=== PATIENT | male | born 1975 | race Caucasian/White ===

== ENCOUNTER 2020-01-01 07:56 | Day surgery (SDC) | payer OTHER, SELFPAY ==
[2019-12-26 10:05] VITALS: BMI 36.0
[2020-01-01] MEDS: Lactated Ringers 1,000 ML 50 ML IVCONT (08:15)
[2020-01-01 08:29] VITALS: BP 116/77; PULSE 62; RESP 16; TEMP 36.4; O2SAT 95
--- NOTE | 2020-01-01 08:39 | P.CONAN_ITS ---
[facility] Past Medical History Medical History Arrhythmia Back pain Cirrhosis Depression Esophageal varices in cirrhosis GERD (gastroesophageal reflux disease) Testicular torsion Surgical History Surgical History H/O wisdom tooth extraction History of esophagogastroduodenoscopy (EGD) Social History Social History Smoking Status: Unknown if ever smoked Use of substances other than those prescribed or required for medical reasons: Yes Substance Use Frequency: Daily Advance Directives Information Provided: No Recently lost weight without trying: No Meds Allergies Allergy/AdvReac Type Severity Reaction Status Date / Time amitriptyline [AMITRIPTYLINE] Allergy Severe SYNCOPE Verified 12/26/19 10:13 ondansetron [From ZOFRAN] AdvReac Intermediate PROLONGED Verified 01/01/20 08:00 QT Home Medications Medication Instructions Recorded Confirmed Type buspirone 5 mg PO BID 12/26/19 12/26/19 History fluoxetine 20 mg PO DAILY 12/26/19 12/26/19 History folic acid 1 mg PO DAILY 12/26/19 12/26/19 History furosemide 80 mg PO DAILY 12/26/19 12/26/19 History hyoscyamine sulfate 0.125 mg PO QID 12/26/19 12/26/19 History lansoprazole 30 mg PO DAILY 12/26/19 12/26/19 History lorazepam 1 mg PO DAILY PRN 12/26/19 12/26/19 History magnesium oxide 400 mg PO DAILY 12/26/19 12/26/19 History multivitamin 1 tab PO DAILY 12/26/19 12/26/19 History nadolol 20 mg PO DAILY 12/26/19 12/26/19 History pregabalin [Lyrica] 50 mg PO BID 12/26/19 12/26/19 History prochlorperazine maleate 5 mg PO TID PRN 12/26/19 12/26/19 History spironolactone 50 mg PO DAILY 12/26/19 12/26/19 History sucralfate [Carafate] 10 ml PO QID 12/26/19 12/26/19 History thiamine HCl (vitamin B1) 50 mg PO DAILY 12/26/19 12/26/19 History trimethobenzamide 300 mg PO Q6H PRN 12/26/19 12/26/19 History Exam Exam Date and Time: January 01, 202039 Height,Weight and Vital Signs: Height 5 ft 7 in Weight 104.326 kg Last Vital Signs Temp 97.5 F 01/01/20 08:29 Pulse 62 01/01/20 08:29 Resp 16 01/01/20 08:29 BP 116/77 01/01/20 08:29 Pulse Ox 95 01/01/20 08:29 Airway Mallampati Class: I TM Dist: >3cm Neck ROM: Full Partial: Upper Heart: rrr Lungs: nl Other: ao Assessment and Plan Assessment Anesthesia Assessment: Anesthesia Plan Discussed and Chart Reviewed Final Anesthetic Review NPO: Yes ASA Class: III Final Preanesthetic Review: No Changes in Pt Med Stat, Meds/Allgs Chart Reviewed, Consent Obtained/Reviewed and Anes Risks/Benef Reviewed Patient Risk: Intermediate Procedure Risk: Low Anesthetic Plan Anesthetic Plan: MAC: Disposition: Standard PACU
--- NOTE | 2020-01-01 08:43 | MHC.SHP ---
Pre-Procedural Eval Section B Chief Complaint: varices Details of Present Illness: hx of cirrhosis Relevant Family History (Specify if Yes): No Relevant Social History: Alcohol Use Present Medications: see Short Stay Collaborative assessment Medical History: Significant History (cirrhossi, ) History of Previous Operations: No relevant previous surgery Allergies: Allergies Allergy/AdvReac Type Severity Reaction Status Date / Time amitriptyline [AMITRIPTYLINE] Allergy Severe SYNCOPE Verified 12/26/19 10:13 ondansetron [From ZOFRAN] AdvReac Intermediate PROLONGED Verified 01/01/20 08:00 QT Review of Systems Sugical H&P ROS: Negative: Constitution, Cardiovascular, Respiratory, Neurological, Psychiatric, Hem-Onc, Allergic/Immunologic, Gastrointestinal, Genitourinary, Musculoskeletal, Integumentary, Endocrine and Eyes/Ears/Nose/Throat Exam Surgical H&P Exam: Normal: HEENT, Normal: Heart, Normal: Lungs, Normal: Extremities, Normal: Skin and Normal: Neurological and Significant Findings: Abdomen (obese) Plan Diagnosis/Plan: Unchanged Patient has been examined and remains a candidate for the planned procedure
--- NOTE | 2020-01-01 08:44 | PM.OP ---
Brief Operative Note Date of procedure: 01/01/20 Pre-op diagnosis: varices Post-op diagnosis: same Procedure: Operative Information Procedure Description: EGD FLEXIBLE TRANSORAL UPPER GASTROINTESTINAL ENDOSCOPY UPPER ENDOSCOPY Consent: Indications for the procedure and potential complications of bleeding, perforation, reaction to medications and missed diagnosis were discussed with the patient and informed consent was obtained. Instrument: Olympus GIF H 190 J mid size upper endoscope Monitoring: Vital signs and clinical assessment, continuous EKG monitoring, Pulse oximetry, Carbon Dioxide monitoring and blood pressure monitoring were done throughout the procedure. Procedure: The patient was placed in the left lateral decubitis position and pre-procedure medications were administered and a bite block was placed. The endoscope was inserted into the mouth and advanced under direct vision to the third part of duodenum. A careful inspection was made as the upper endoscope was withdrawn including a retroflexed examination of the proximal stomach; Findings and interventions are described below. 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 Mosaic pattern consistent with portal hypertensive gastropathy. Grade 2 flap valve on retroflexed examination of the cardia. No gastric varices. Duodenum: Normal bulb and descending duodenum, Intervention: none Plan: Repeat EGD in 1-2 yrs or earlier if clinically indicated cont with current medications Above findings were reviewed with the patient and relevant handouts were provided if indicated. Surgeon: Satnam Vallecillo MD Anesthesia: MAC Condition: stable Disposition: PACU
[2020-01-01 09:15] VITALS: PULSE 60; RESP 16; TEMP 36.6; O2SAT 99
[2020-01-01 09:30] VITALS: BP 114/72; PULSE 62; RESP 16; O2SAT 95
[2020-01-01 09:45] VITALS: BP 118/75; PULSE 65; RESP 16; TEMP 36.6; O2SAT 96
--- NOTE | 2020-01-01 10:11 | HO.POSTANES ---
Post Anesthesia Evaluation Post Anesthesia Evaluation Vital Signs: Vital Signs Temp Pulse Resp BP Pulse Ox 01/01/20 09:45 97.8 F 65 16 118/75 96 01/01/20 09:30 62 16 114/72 95 01/01/20 09:15 97.8 F 60 16 99 01/01/20 08:29 97.5 F 62 16 116/77 95 Anesthesia: Monitored Mental Status: Awake Pain Control: Satisfactory Nausea/Vomiting: None Hydration: Adequate Anesthesia-Related Issues: No Anes. Related Issues
== END 2020-01-01 10:30 | disposition home or self-care (01) ==
PROVIDERS: Internal Medicine Gastroenterology; PCP Hospitalist; Visit Provider Internal Medicine
PROC: 0DJ08ZZ Inspection of Upper Intestinal Tract, Via Natural or Artificial Opening Endoscopic (ICD-10-PCS; CPT 43235; principal; 2020-01-01 08:40)
DX: K74.60 Unspecified cirrhosis of liver (principal); I85.10 Secondary esophageal varices without bleeding; Z72.89 Other problems related to lifestyle; K44.9 Diaphragmatic hernia without obstruction or gangrene; K31.811 Angiodysplasia of stomach and duodenum with bleeding; K21.9 Gastro-esophageal reflux disease without esophagitis; F33.9 Major depressive disorder, recurrent, unspecified; Z79.899 Other long term (current) drug therapy; Z88.8 Allergy status to other drugs, medicaments and biological substances
CPT/HCPCS: 43235

== ENCOUNTER → 2020-01-23 09:57 | Outpatient (BNVA) | payer OTHER, SELFPAY | PROVIDERS: PCP Hospitalist; Visit Provider Internal Medicine Gastroenterology | DX: Z76.89 Persons encountering health services in other specified circumstances (principal) ==

== ENCOUNTER → 2020-05-18 10:24 | Outpatient (BNVA) | payer OTHER, SELFPAY | PROVIDERS: PCP Hospitalist; Visit Provider Internal Medicine Gastroenterology ==

== ENCOUNTER 2020-07-22 09:38 | Outpatient (REF) | payer OTHER, SELFPAY ==
--- NOTE | ~2020-07-22 | US_ITS ---
EXAMINATION: US ABDOMEN LIMITED CLINICAL INFORMATION: Alcoholic cirrhosis of liver without ascites. COMPARISON: Ultrasound abdomen with elastography 05/28/2019. CT abdomen and pelvis 09/06/2018. Ultrasound abdomen 07/28/2018. TECHNIQUE: Real-time imaging of the right upper quadrant abdominal viscera. FINDINGS: PANCREAS: Normal. LIVER: There is a liver appears cirrhotic with irregular contour and heterogeneous echotexture. No focal hepatic lesion. There is no intrahepatic biliary duct dilatation seen. The main portal vein is patent with appropriate hepatopedal flow. GALLBLADDER: Normal. The gallbladder is physiologically distended without evidence of stones, sludge, polyps, wall thickening or pericholecystic fluid. COMMON BILE DUCT: Normal in caliber measuring 0.6 cm in diameter. RIGHT KIDNEY: Normal. No hydronephrosis. No renal calculi or focal parenchymal lesions. The kidney measures 12.0 cm in maximum dimension. FREE FLUID: None. US/US abdomen limited IMPRESSION: Cirrhotic-appearing liver. No focal liver lesion seen.
[2020-07-22 10:51] LABS: Imm Gran Abs Auto 0.02 X10*3/uL (0.00-0.03); Imm Gran Pct Auto 0.3 % (0.0-0.4); Neutrophils Percent Auto 71.7 % (45-73); PLT CLUMP 1; SCAN SMEAR FLAG 1
[2020-07-22 10:53] LABS: Basophils Percent Auto 0.1 % (0-2); Eosinophils Absolute Auto 0.2 X10*3/uL (0.0-0.4); Eosinophils Percent Auto 2.6 % (0-4); Hematocrit 45.2 % (42-52); Lymphocytes Percent Auto 14.4 % (20-40); Mean Corpuscular HGB Conc 35.4 g/dl (31.0-36.0); Mean Corpuscular Hemoglobin 31.2 pg (27.0-33.0); Mean Corpuscular Volume 88.1 fL (80-98); Mean Platelet Volume 11.3 fL (9.4-12.4); Monocytes Absolute Auto 0.7 X10*3/uL (0.1-1.2); Monocytes Percent Auto 10.9 % (2-11); Neutrophils Absolute Auto 4.9 X10*3/uL (2.0-8.3); Red Blood Count 5.13 X10*6/uL (4.60-5.80); Red Cell Distribution Width 13.5 % (11.0-16.0); White Blood Count 6.8 X10*3/uL (4.8-10.8)
[2020-07-22 10:55] LABS: INTERNATIONAL NORM RATIO 1.2 (0.9-1.1); Prothrombin Time 13.9 SEC (10.8-13.0)
[2020-07-22 10:57] LABS: Platelet Count 88 X10*3/uL (160-400)
[2020-07-22 11:17] LABS: Alanine Aminotransferase 16 U/L (0-40); Albumin Level 4.4 g/dL (3.5-5.0); Alkaline Phosphatase 107 U/L (39-117); Anion Gap 13 (12-20); Aspartate Amino Transferase 25 U/L (5-37); Blood Urea Nitrogen 13 mg/dL (9-16); Calcium 9.2 mg/dL (8.4-10.2); Carbon Dioxide 28 mmol/L (22-29); Chloride 101 mmol/L (96-108); Estimated Glomerular Filt Rate > 60; Glucose Random 112 mg/dL (60-115); Potassium 3.6 mmol/L (3.3-5.1); Sodium 138 mmol/L (135-145); Total Protein 7.5 g/dL (6.5-8.0)
[2020-07-22 12:15] LABS: Folate > 20.0 ng/mL (> or = 4.0); Vitamin B12 1437 pg/mL (200-900)
[2020-07-25 01:11] LABS: Zinc 98 mcg/dL (60-130)
[2020-07-27 06:27] LABS: Vitamin B6 46.7 ng/mL (2.1-21.7)
[2020-07-27 11:12] LABS: Vitamin C 1.7 mg/dL (0.2-2.1)
[2020-07-27 12:51] LABS: Vitamin A 40 mcg/dL (38-98)
[2020-07-27 15:17] LABS: Alpha-Tocopherol 14.6 mg/L (5.7-19.9)
[2020-07-28 14:42] LABS: Nicotinamide <20 ng/mL; Vit B3 - Nicotinic Acid <20 ng/mL
[2020-07-29 09:11] LABS: Vitamin B5 (Pantothenic Acid) 164 ng/mL (<275)
== END 2020-07-22 09:39 | disposition home or self-care (01) ==
LOC: HO.US 09:38
PROVIDERS: PCP Hospitalist; Visit Provider Internal Medicine Gastroenterology
DX: K70.30 Alcoholic cirrhosis of liver without ascites (principal)
CPT/HCPCS: 36415; 76705; 80053; 82180; 82306; 82607; 82746; 84207; 84446; 84590; 84591; 84630; 85025; 85610

== ENCOUNTER 2020-09-02 23:50 | Emergency (ER) | payer OTHER, SELFPAY ==
--- NOTE | ~2020-09-02 | CT_ITS ---
EXAMINATION: CT ABDOMEN AND PELVIS WITHOUT CONTRAST CLINICAL INFORMATION: Severe epigastric pain, history of gastritis COMPARISON: 09/06/2018 TECHNIQUE: Multidetector volumetric imaging was performed from the superior aspect of the liver through the pubic symphysis. Sagittal and coronal reformatted images were obtained on the technologist's workstation. This CT examination was performed using dose optimization techniques as appropriate, variously including the following: *Automated exposure control *Adjustment of mA and/or kV according to patient size (this includes techniques or standardized protocols for targeted exams where dose is matched to indication/reason for exam; i.e. extremities or head) *Use of iterative reconstruction technique DLP: 1205 mGy-cm FINDINGS: LUNG BASES: The visualized lung bases are unremarkable. LIVER, GALLBLADDER, AND BILIARY TREE: The liver again demonstrates a nodular contour and heterogeneous attenuation consistent with cirrhosis. No focal hepatic lesion or biliary ductal dilatation is identified on this noncontrast exam. The gallbladder is unremarkable with no evidence of radiopaque gallstones, gallbladder wall thickening, or obvious pericholecystic inflammatory changes. PANCREAS: Unremarkable. SPLEEN: Splenomegaly again noted. ADRENAL GLANDS: Left adrenal myelolipoma is redemonstrated. Right adrenal gland is unremarkable. KIDNEYS AND URETERS: The kidneys are normal in size, shape, and attenuation. No hydronephrosis, hydroureter, or calculi seen. No perinephric stranding. BLADDER: Unremarkable. GASTROINTESTINAL TRACT: Stomach appears unremarkable. There is scattered colonic diverticulosis without diverticulitis. No evidence of bowel obstruction. The appendix is unremarkable. No free fluid or free air is seen. ABDOMINAL WALL: No significant hernia is appreciated. LYMPH NODES: Normal. VASCULAR: Unremarkable. PELVIC VISCERA: Unremarkable. OSSEOUS STRUCTURES: There is degenerative disc disease at L4-L5 with surrounding degenerative endplate changes. CT/CT abdomen pelvis wo con IMPRESSION: 1. No acute findings identified in the abdomen/pelvis. 2. Redemonstrated cirrhosis and splenomegaly. 3. Colonic diverticulosis without diverticulitis.
--- NOTE | 2020-09-03 00:05 | PC.NURSE ---
PT TO ROOM VIA AMBULANCE WITH C/O NAUSEA, VOMITING, AND ABD PAIN. PT CHG INTO GOWN AND AWAITING FOR MD FOR EVAL.
[2020-09-03 00:18] VITALS: BP 144/66; PULSE 63; RESP 16; TEMP 36.6; O2SAT 99; BMI 39.0
--- NOTE | 2020-09-03 00:38 | ECG_ITS ---
Test Reason : ABDPAIN Blood Pressure : / mmHG Vent. Rate : 072 BPM Atrial Rate : 072 BPM P-R Int : 142 ms QRS Dur : 090 ms QT Int : 418 ms P-R-T Axes : 048 002 042 degrees QTc Int : 457 ms Sinus rhythm with Sinus Arrhythmia Otherwise normal ECG When compared with ECG of 11-OCT-2018 11:21, Sinus Arrhythmia is now Present Referred By: Magda Moore Electronically Signed By:LOURDES GRIFFITH MD
--- NOTE | 2020-09-03 00:40 | ED_ITS ---
HPI - Abdominal Pain General Chief Complaint: Abdominal Pain Stated Complaint: Abd Pain Time Seen by Provider: 09/02/20 23:57 Source: patient and EMS Mode of arrival: EMS Limitations: no limitations History of Present Illness HPI narrative: Patient comes emergency room complaining of severe epigastric pain. Patient states he is known to have gastritis. Patient states that he has not been drinking alcohol. Patient also complaining of nausea and vomiting, no diarrhea. No fever or chills. Patient denies taking any recent NSAIDs. Related Data Home Medications Medication Instructions Recorded Confirmed buspirone 5 mg PO BID 12/26/19 12/26/19 fluoxetine 20 mg PO DAILY 12/26/19 12/26/19 folic acid 1 mg PO DAILY 12/26/19 12/26/19 lorazepam 1 mg PO DAILY PRN 12/26/19 12/26/19 magnesium oxide 400 mg PO DAILY 12/26/19 12/26/19 multivitamin 1 tab PO DAILY 12/26/19 12/26/19 pregabalin [Lyrica] 50 mg PO BID 12/26/19 12/26/19 thiamine HCl (vitamin B1) 50 mg PO DAILY 12/26/19 12/26/19 trimethobenzamide 300 mg PO Q6H PRN 12/26/19 12/26/19 Previous Rx's Medication Instructions Recorded sucralfate 100 mg/mL oral 10 ml PO QID 30 Days #1200 ml 01/30/20 suspension zinc 50 mg tablet 50 mg PO DAILY 90 Days #90 tab 03/08/20 pantoprazole 40 mg tablet,delayed 40 mg PO BID #60 tab 03/17/20 release famotidine 40 mg tablet 40 mg PO BEDTIME #30 tab 05/27/20 furosemide 80 mg tablet 80 mg PO DAILY 30 Days #30 tab 07/08/20 hyoscyamine sulfate 0.125 mg tablet 0.125 mg PO QID 30 Days #120 tab 07/08/20 lansoprazole 30 mg capsule,delayed 30 mg PO BID 30 Days #60 cap 07/13/20 release lansoprazole 30 mg capsule,delayed 30 mg PO BID #180 cap 07/21/20 release prochlorperazine maleate 5 mg 5 mg PO TID PRN #90 tab 07/21/20 tablet nadolol 20 mg tablet 20 mg PO DAILY #30 tab 08/09/20 spironolactone 50 mg tablet 100 mg PO DAILY 90 Days #180 tab 08/09/20 Allergies Allergy/AdvReac Type Severity Reaction Status Date / Time amitriptyline [AMITRIPTYLINE] Allergy Severe SYNCOPE Verified 05/18/20 10:24 ondansetron [From ZOFRAN] AdvReac Intermediate PROLONGED Verified 05/18/20 10:24 QT Review of Systems Review of Systems Constitutional : No Weight loss, No Fever, No Chills, No Night Sweats, No Fatigue, No Malaise ENT/Mouth : No Hearing loss, No Ear Pain, No Nasal Congestion, No Sinus Pain, No Hoarseness, No sore throat, No Rhinorrhea, No Swallowing Difficulty Eyes: No Eye Pain, No Swelling, No Redness, No Foreign Body, No Discharge, No Vision Changes Cardiovascular : No Chest Pain, No SOB, No Dyspnea on Exertion, No Orthopnea, No Edema, No Palpitations Respiratory : No Cough, No Sputum, No Wheezing, No Smoke Exposure, No Dyspnea Gastrointestinal : Complaining of nausea and vomiting, No Diarrhea, No Constipation, complaining of severe abdominal pain in epigastric region, No Hematochezia, No Melena Genitourinary : no irregular bleeding, No Dysuria, No Urinary Frequency, No Hematuria, No Urinary Incontinence, No Urgency, No Flank Pain, No Urinary Flow Changes, No Hesitancy Musculoskeletal : No joint pain, No Myalgias, No Joint Swelling Skin : No Skin Lesions, No rash Neuro : No Weakness, No Numbness, No Paresthesias, No Loss of Consciousness, No Dizziness, No Headache Psych : No Anxiety/Panic, No Depression, No SI/HI/AH/VH, No Social Issues, Heme/Lymph: No Bruising, No Bleeding,No Lymphadenopathy Endocrine : No Polyuria, No Polydipsia, No Temperature Intolerance Physical Exam Vital Signs: Vital Signs: Last Vital Signs Temp 98 F 09/03/20 00:18 Pulse 63 09/03/20 00:18 Resp 16 09/03/20 00:18 BP 144/66 H 09/03/20 00:18 Pulse Ox 99 09/03/20 00:18 Body Mass Index 39.0 Appearance: Alert. Oriented X3. Actively vomiting, looks very uncomfortable Eyes: Pupils equal, round and reactive to light. ENT: Pharynx normal. Neck: Normal inspection. Neck supple. No lymph nodes noted. No crepitus CVS: Normal heart rate and rhythm. Pulses normal. Normal S1 and S2 Respiratory: No respiratory distress. Breath sounds normal. No Wheezing. No rales Abdomen: Soft , tender to palpation in bilateral upper quadrants, especially over the epigastric area. No rebound, no guarding. No rigidity. No distention. Skin: Skin warm and dry. Normal skin color. Normal skin turgor. Extremities: No lower extremity edema. No lower extremity edema. No Lacerations. No Rash Neuro: Oriented X 3. No motor deficit. No sensory deficit. Moving all extermities. No slurred speech. Course Course Course Narrative: Patient has received multiple medications for vomiting. Patient has been seen multiple times taking his fingers in his mouth to make himself throw up. Patient requesting a GI cocktail. I discussed with the patient we will go ahead and give it to him, however in order to be effective, he needs to not make himself throw up At this time, all of the patient's labs are pending, an elevated white blood cell count is expected secondary to reactive leukocytosis. Sign-out given to Dr. Erazo [facility] - Abdominal Pain Lab Data Result diagrams: 09/03/20 01:22 09/03/20 01:22 Labs: Lab Results 09/03/20 09/03/20 09/03/20 Range/Units 01:22 01:22 Unknown WBC 12.4 H (4.8-10.8) X10*3/uL RBC 5.42 (4.60-5.80) X10*6/uL Hgb 17.2 (14.0-18.0) g/dl Hct 47.4 (42-52) % MCV 87.5 (80-98) fL MCH 31.7 (27.0-33.0) pg MCHC 36.3 H (31.0-36.0) g/dl RDW 13.1 (11.0-16.0) % Plt Count 77 L (160-400) X10*3/uL MPV 12.5 H (9.4-12.4) fL Immature Gran % (Auto) 0.3 (0.0-0.4) % Neut % (Auto) 88.9 H (45-73) % Lymph % (Auto) 7.3 L (20-40) % Pender % (Auto) 3.0 (2-11) % Eos % (Auto) 0.3 (0-4) % Baso % (Auto) 0.2 (0-2) % Lymph # (Auto) 0.9 L (1.2-4.9) X10*3/uL Pender # (Auto) 0.4 (0.1-1.2) X10*3/uL Eos # (Auto) 0.0 (0.0-0.4) X10*3/uL Baso # (Auto) 0.0 (0.0-0.2) X10*3/uL Abs Immat Gran (auto) 0.04 H (0.00-0.03) X10*3/uL Absolute Neuts (auto) 11.0 H (2.0-8.3) X10*3/uL Absolute Nucleated RBC 0.000 (0.0-0.012) X10*3/uL Nucleated RBC % (auto) 0.0 (0.0-0.2) /100WBC Smear Tech's Comments VERIFIED GGT Cancelled Ethyl Alcohol < 10 mg/dL Imaging Data CT scan - abdomen: Radiologist's impression: FINDINGS: LUNG BASES: The visualized lung bases are unremarkable. LIVER, GALLBLADDER, AND BILIARY TREE: The liver again demonstrates a nodular contour and heterogeneous attenuation consistent with cirrhosis. No focal hepatic lesion or biliary ductal dilatation is identified on this noncontrast exam. The gallbladder is unremarkable with no evidence of radiopaque gallstones, gallbladder wall thickening, or obvious pericholecystic inflammatory changes. PANCREAS: Unremarkable. SPLEEN: Splenomegaly again noted. ADRENAL GLANDS: Left adrenal myelolipoma is redemonstrated. Right adrenal gland is unremarkable. KIDNEYS AND URETERS: The kidneys are normal in size, shape, and attenuation. No hydronephrosis, hydroureter, or calculi seen. No perinephric stranding. BLADDER: Unremarkable. GASTROINTESTINAL TRACT: Stomach appears unremarkable. There is scattered colonic diverticulosis without diverticulitis. No evidence of bowel obstruction. The appendix is unremarkable. No free fluid or free air is seen. ABDOMINAL WALL: No significant hernia is appreciated. LYMPH NODES: Normal. VASCULAR: Unremarkable. PELVIC VISCERA: Unremarkable. OSSEOUS STRUCTURES: There is degenerative disc disease at L4-L5 with surrounding degenerative endplate changes. CT/CT abdomen pelvis wo con IMPRESSION: 1. No acute findings identified in the abdomen/pelvis. 2. Redemonstrated cirrhosis and splenomegaly. 3. Colonic diverticulosis without diverticulitis. ECG Data Attestation: I personally reviewed and interpreted this ECG as follows: (Sinus rhythm, heart rate 72, no ST segment depression or elevation, no T-wave inversion, QTC 457) Discharge Plan Discharge Prescriptions: No Action sucralfate [Carafate] 100 mg/mL suspension 10 ml PO QID 30 Days Qty: 1200 RF: 3 zinc 50 mg tablet 50 mg PO DAILY 90 Days Qty: 90 RF: 1 pantoprazole 40 mg tablet,delayed release (DR/EC) 40 mg PO BID Qty: 60 RF: 2 famotidine 40 mg tablet 40 mg PO BEDTIME Qty: 30 RF: 4 hyoscyamine sulfate 0.125 mg tablet 0.125 mg PO QID 30 Days Qty: 120 RF: 1 furosemide 80 mg tablet 80 mg PO DAILY 30 Days Qty: 30 RF: 6 lansoprazole 30 mg capsule,delayed release(DR/EC) 30 mg PO BID 30 Days Qty: 60 RF: 3 prochlorperazine maleate 5 mg tablet 5 mg PO TID PRN (Reason: for nausea) Qty: 90 RF: 2 lansoprazole 30 mg capsule,delayed release(DR/EC) 30 mg PO BID Qty: 180 RF: 1 nadolol 20 mg tablet 20 mg PO DAILY Qty: 30 RF: 3 spironolactone 50 mg tablet 100 mg PO DAILY 90 Days Qty: 180 RF: 1 multivitamin Tablet 1 tab PO DAILY RF: 0 buspirone 5 mg Tablet 5 mg PO BID RF: 0 folic acid 1 mg Tablet 1 mg PO DAILY RF: 0 lorazepam 1 mg Tablet 1 mg PO DAILY PRN (Reason: Anxiety) RF: 0 fluoxetine 20 mg Capsule 20 mg PO DAILY RF: 0 thiamine HCl (vitamin B1) 50 mg Tablet 50 mg PO DAILY RF: 0 trimethobenzamide 300 mg Capsule 300 mg PO Q6H PRN (Reason: Nausea) RF: 0 pregabalin [Lyrica] 50 mg Capsule 50 mg PO BID RF: 0 magnesium oxide 400 mg magnesium Tablet 400 mg PO DAILY RF: 0 PMFSH Past Medical History Medical History Arrhythmia Back pain Cirrhosis Depression Esophageal varices in cirrhosis GERD (gastroesophageal reflux disease) Testicular torsion Surgical History H/O wisdom tooth extraction History of esophagogastroduodenoscopy (EGD) Family History Family History (Updated 05/18/20 @ 10:26 by JEFERSON Dillon) Father History of COPD Mother History of diabetes mellitus Social History Social History (Updated 05/18/20 @ 10:26 by JEFERSON Dillon) Household Members: Significant Other, Family and Children Alcohol intake: current Alcohol intake frequency: does not drink Advance Directives: No Advance Directives Information Provided: No
--- NOTE | 2020-09-03 00:57 | PC.NURSE ---
MD AT BEDSIDE FOR EVAL. IV PLACED TO LEFT LOWER ARM. PT TO CT IN STRETCHER AND MEDICATED FOR PAIN AND NAUSEA.
[2020-09-03] MEDS: Famotidine/PF 20 MG/2 ML VIAL IVPUSH (00:58)
[2020-09-03] MEDS: 0.9 % Sodium Chloride 1,000 ML 999 ML IVCONT (00:59)
[2020-09-03] MEDS: Metoclopramide HCl 10 MG/2 ML VIAL IVPUSH (00:59)
[2020-09-03] MEDS: Morphine Sulfate 4 MG/ML CARTRIDGE IVPUSH (00:59)
[2020-09-03 02:00] LABS: Basophils Percent Auto 0.2 % (0-2); Eosinophils Percent Auto 0.3 % (0-4); Imm Gran Abs Auto 0.04 X10*3/uL (0.00-0.03); Imm Gran Pct Auto 0.3 % (0.0-0.4); MANUAL DIFF FLAG SCAN; Mean Corpuscular HGB Conc 36.3 g/dl (31.0-36.0); Mean Corpuscular Volume 87.5 fL (80-98); PLT CLUMP 1; SCAN SMEAR FLAG 1
[2020-09-03 02:02] LABS: Hematocrit 47.4 % (42-52); Hemoglobin 17.2 g/dl (14.0-18.0); Lymphocytes Absolute Auto 0.9 X10*3/uL (1.2-4.9); Lymphocytes Percent Auto 7.3 % (20-40); Mean Corpuscular Hemoglobin 31.7 pg (27.0-33.0); Mean Platelet Volume 12.5 fL (9.4-12.4); Monocytes Absolute Auto 0.4 X10*3/uL (0.1-1.2); Neutrophils Percent Auto 88.9 % (45-73); Red Blood Count 5.42 X10*6/uL (4.60-5.80); Red Cell Distribution Width 13.1 % (11.0-16.0); White Blood Count 12.4 X10*3/uL (4.8-10.8)
[2020-09-03 02:03] LABS: Platelet Count 77 X10*3/uL (160-400)
[2020-09-03 02:19] LABS: SLIDE REVIEW VERIFIED
[2020-09-03] MEDS: Magnesium Hydrox/Alum Hydrox 30 ML ORAL.SUSP PO (02:27)
[2020-09-03] MEDS: Lidocaine HCl Viscous 2 % 15 ML SOLUTION MUCOUS MEM (02:27)
[2020-09-03 02:55] LABS: Ethanol < 10 mg/dL
[2020-09-03 04:00] VITALS: RESP 16; O2SAT 97
--- NOTE | 2020-09-03 04:38 | PC.NURSE ---
PT UP TO NURSING DESK AND REQUESTING PAIN MEDS. PT RETURNS TO ROOM AND WAS OBSERVED STICKING FINGERS DOWN THROAT TO MAKE SELF VOMIT. PT OBSERVED DOING THIS SEVERAL TIMES. DR. GALO AWARE. PT AWAITING FOR LABS. WILL CONTINUE TO MONITOR PT.
[2020-09-03 06:44] LABS: Anion Gap 19 (12-20); Blood Urea Nitrogen 15 mg/dL (9-16); Calcium 9.3 mg/dL (8.4-10.2); Carbon Dioxide 18 mmol/L (22-29); Chloride 105 mmol/L (96-108); Creatinine Clr Calc Pharmacy 139.8; Estimated Glomerular Filt Rate > 60; Glucose Random 130 mg/dL (60-115); Potassium 3.8 mmol/L (3.3-5.1); Sodium 138 mmol/L (135-145)
[2020-09-03 06:49] LABS: Alanine Aminotransferase 15 U/L (0-40); Albumin Level 4.6 g/dL (3.5-5.0); Alkaline Phosphatase 113 U/L (39-117); Aspartate Amino Transferase 32 U/L (5-37); Bilirubin Direct 0.4 mg/dL (0.0-0.5); Bilirubin Total 1.2 mg/dL (0.0-1.0); Lipase 24 U/L (8-78); Total Protein 7.9 g/dL (6.5-8.0)
[2020-09-03] MEDS: diphenhydrAMINE HCL 50 MG/ML VIAL IVPUSH (07:08)
== END 2020-09-03 07:16 | disposition home or self-care (01) ==
PROVIDERS: Emergency Provider Emergency Medicine
DX: R10.13 Epigastric pain (principal); R11.2 Nausea with vomiting, unspecified; Z87.19 Personal history of other diseases of the digestive system
CPT/HCPCS: 36415; 74176; 80048; 80076; 82077; 83690; 85025; 93005; 96361; 96374; 96375; 99284; J1200; J1790; J2270; J2765

== ENCOUNTER → 2020-09-14 13:24 | Outpatient (BNVA) | payer OTHER, SELFPAY | PROVIDERS: PCP Hospitalist; Visit Provider Internal Medicine Gastroenterology ==

== ENCOUNTER → 2021-02-15 12:39 | Outpatient (BNVA) | payer OTHER, SELFPAY | PROVIDERS: PCP Hospitalist; Visit Provider Internal Medicine Gastroenterology ==

== ENCOUNTER 2021-06-15 10:34 | Outpatient (REF) | payer OTHER, SELFPAY ==
--- NOTE | ~2021-06-15 | US_ITS ---
EXAMINATION: US ABDOMEN LIMITED WITH LIVER ELASTOGRAPHY CLINICAL INFORMATION: Alcoholic cirrhosis without ascites COMPARISON: Previous abdominal ultrasound most recent June [address] of the abdomen and pelvis August 2020 TECHNIQUE: Real-time imaging of the abdominal viscera. Noninvasive ultrasound liver fibrosis assessment is performed using [employer] ElastPQ point quantification shear wave elastography (2D-SWE) with a C5-2 MHz transducer. Multiple elastography samples are obtained. FINDINGS: PANCREAS: Not well visualized. LIVER: Liver echotexture is very heterogeneous suggestive of hepatocellular disease. The contour of the liver is lobulated suggestive of cirrhosis. No focal liver lesion. No biliary duct dilatation. The right lobe measures 13 cm in length. The left lobe measures 14 cm in length. Portal flow is normal/hepatopedal Shear wave liver elastography median stiffness is 1.4 m/s (reference: normal median stiffness is 1.3 m/s or less). IQR/median stiffness to assess sampling precision is 0.11 (reference: good quality data set is IQR/median stiffness of 0.15 or less). GALLBLADDER: Normal. The gallbladder is physiologically distended without evidence of stones, sludge, polyps, wall thickening or pericholecystic fluid. COMMON BILE DUCT: Normal in caliber measuring 0.7 cm in diameter. RIGHT KIDNEY: Normal. No hydronephrosis. No renal calculi or focal parenchymal lesions. The kidney measures 13.5 cm in maximum dimension. FREE FLUID: None. US/US abdomen cai w elastography IMPRESSION: 1. Impression: Cirrhotic-appearing liver. No focal liver lesion seen. Limited visualization of the pancreas. 2. Liver elastography: Adequate liver sampling. Decreased liver stiffness compared to May 2019. REFERENCE: Society of Radiologists in Ultrasound Liver Stiffness Thresholds (2020): LIVER STIFFNESS THRESHOLDS: *Liver Stiffness equal or less than 1.3 m/s: High probability of being normal. *Liver Stiffness less than 1.7 m/s: In the absence of other known clinical signs, rules out compensated advanced chronic liver disease. *Liver Stiffness 1.7-2.1 m/s: Suggestive of compensated advanced chronic liver disease but need further test for confirmation. *Liver Stiffness over 2.1 m/s: Rules in compensated advanced chronic liver disease. *Liver Stiffness over 2.4 m/s: Suggestive of clinically significant portal hypertension. QUALITY OF DATA SET: *IQR/Median value equal or less than 0.15 implies a quality data set. *IQR/Median value over 0.15 implies a poor quality data set. SIGNIFICANT CHANGE FROM PRIOR EXAM: Significant change if liver stiffness measurement is 10% or greater from prior exam. OTHER CONSIDERATIONS: The stage of liver fibrosis may be overestimated in the setting of acute hepatitis, liver inflammation, elevated liver function tests, hepatic vascular congestion, obstructive cholestasis, non-fasting state, and infiltrative diseases such as amyloidosis and lymphoma. In some patients with NAFLD, the liver stiffness thresholds for compensated advanced chronic liver disease may be lower. In causes other than viral hepatitis and NAFLD, liver stiffness thresholds are not well established.
[2021-06-15 12:04] LABS: Basophils Percent Auto 0.5 % (0-2); Eosinophils Absolute Auto 0.1 X10*3/uL (0.0-0.4); Eosinophils Percent Auto 2.2 % (0-4); Hematocrit 46.4 % (42.0-52.0); Hemoglobin 16.1 g/dl (14.0-18.0); Imm Gran Abs Auto 0.03 X10*3/uL (0.00-0.03); Imm Gran Pct Auto 0.5 % (0.0-0.4); Lymphocytes Percent Auto 18.5 % (20-40); MANUAL DIFF FLAG SCAN; Mean Corpuscular HGB Conc 34.7 g/dl (31.0-36.0); Mean Corpuscular Hemoglobin 31.5 pg (27.0-33.0); Mean Corpuscular Volume 90.8 fL (80.0-98.0); Monocytes Absolute Auto 0.6 X10*3/uL (0.1-1.2); Monocytes Percent Auto 10.6 % (2-11); Neutrophils Absolute Auto 3.7 x10*3/uL (2.0-8.3); Neutrophils Percent Auto 67.7 % (45-73); PLT CLUMP 1; Red Blood Count 5.11 X10*6/uL (4.60-5.80); Red Cell Distribution Width 13.3 % (11.0-16.0); SCAN SMEAR FLAG 1
[2021-06-15 12:08] LABS: INTERNATIONAL NORM RATIO 1.1 (0.9-1.1); Prothrombin Time 12.6 SEC (9.9-13.0)
[2021-06-15 12:22] LABS: Platelet Count 81 X10*3/uL (160-400); White Blood Count 5.5 X10*3/uL (4.8-10.8)
[2021-06-15 12:23] LABS: SLIDE REVIEW VERIFIED
[2021-06-15 12:43] LABS: Erythrocyte Sedimentation Rate 5 MM/HR (0-15)
[2021-06-15 12:54] LABS: Alanine Aminotransferase 27 U/L (0-40); Albumin Level 4.4 g/dL (3.5-5.0); Alkaline Phosphatase 93 U/L (39-117); Anion Gap 14 (12-20); Aspartate Amino Transferase 32 U/L (5-37); Bilirubin Total 0.8 mg/dL (0.0-1.0); Blood Urea Nitrogen 11 mg/dL (9-16); Calcium 9.4 mg/dL (8.4-10.2); Carbon Dioxide 26 mmol/L (22-29); Chloride 104 mmol/L (96-108); Estimated Glomerular Filt Rate > 60; Glucose Random 102 mg/dL (60-115); Iron 100 mcg/dL (45-160); Percent Iron Saturation 28 % (15-50); Potassium 4.3 mmol/L (3.3-5.1); Sodium 140 mmol/L (135-145); Total Iron Binding Capacity 354 mcg/dL (228-428); Total Protein 7.6 g/dL (6.5-8.0); Unsaturated Iron Binding 254 ug/dL
[2021-06-15 13:24] LABS: Ferritin 75 ng/mL (20-250)
[2021-06-15 13:25] LABS: Folate > 20.0 ng/mL (> or = 4.0); Vitamin B12 1140 pg/mL (200-900)
[2021-06-18 11:41] LABS: Vitamin C 1.3 mg/dL (0.2-2.1)
[2021-06-18 16:47] LABS: Zinc 82 mcg/dL (60-130)
[2021-06-22 09:56] LABS: Vitamin A 40 mcg/dL (38-98)
== END 2021-06-15 10:35 | disposition home or self-care (01) ==
LOC: HO.US 10:34
PROVIDERS: Visit Provider Internal Medicine Gastroenterology
DX: K70.30 Alcoholic cirrhosis of liver without ascites (principal); K75.81 Nonalcoholic steatohepatitis (NASH)
CPT/HCPCS: 36415; 76705; 76981; 80053; 82180; 82607; 82728; 82746; 83540; 84590; 84630; 85025; 85610; 85652

== ENCOUNTER 2022-04-21 11:34 | Outpatient (REF) | payer OTHER, SELFPAY ==
[2022-04-21 11:50] LABS: MANUAL DIFF FLAG NO
[2022-04-21 12:54] LABS: Basophils Percent Auto 0.4 % (0-2); Eosinophils Absolute Auto 0.2 X10*3/uL (0.0-0.4); Hematocrit 46.9 % (42.0-52.0); Hemoglobin 16.6 g/dl (14.0-18.0); Imm Gran Abs Auto 0.02 X10*3/uL (0.00-0.03); Imm Gran Pct Auto 0.2 % (0.0-0.4); Lymphocytes Absolute Auto 2.1 X10*3/uL (1.2-4.9); Lymphocytes Percent Auto 24.5 % (20-40); Mean Corpuscular HGB Conc 35.4 g/dl (31.0-36.0); Mean Corpuscular Hemoglobin 31.1 pg (27.0-33.0); Mean Platelet Volume 11.4 fL (9.4-12.4); Monocytes Absolute Auto 0.8 X10*3/uL (0.1-1.2); Monocytes Percent Auto 9.1 % (2-11); Neutrophils Absolute Auto 5.3 x10*3/uL (2.0-8.3); Neutrophils Percent Auto 63.8 % (45-73); Red Blood Count 5.33 X10*6/uL (4.60-5.80); Red Cell Distribution Width 13.2 % (11.0-16.0); White Blood Count 8.4 X10*3/uL (4.8-10.8)
[2022-04-21 12:55] LABS: Platelet Count 90 X10*3/uL (160-400)
[2022-04-21 12:59] LABS: INTERNATIONAL NORM RATIO 1.1 (0.9-1.1); Prothrombin Time 12.7 SEC (10.0-13.1)
[2022-04-21 13:58] LABS: Alanine Aminotransferase 15 U/L (0-40); Albumin Level 4.5 g/dL (3.5-5.0); Alkaline Phosphatase 84 U/L (39-117); Anion Gap 15 (12-20); Aspartate Amino Transferase 22 U/L (5-37); Bilirubin Total 0.8 mg/dL (0.0-1.0); Blood Urea Nitrogen 16 mg/dL (9-16); Calcium 9.9 mg/dL (8.4-10.2); Carbon Dioxide 27 mmol/L (22-29); Chloride 101 mmol/L (96-108); Estimated Glomerular Filt Rate > 60; Glucose Random 82 mg/dL (60-115); Sodium 139 mmol/L (135-145); Total Protein 7.4 g/dL (6.5-8.0)
== END 2022-04-21 11:35 | disposition home or self-care (01) ==
LOC: HO.LAB 11:34
PROVIDERS: PCP Nurse Practitioner Family; Referring Provider Nurse Practitioner Family; Visit Provider Internal Medicine Gastroenterology
DX: K70.30 Alcoholic cirrhosis of liver without ascites (principal); K75.81 Nonalcoholic steatohepatitis (NASH)
CPT/HCPCS: 36415; 80053; 85025; 85610

== ENCOUNTER 2023-01-22 09:59 | Outpatient (REF) | payer OTHER, SELFPAY ==
--- NOTE | ~2023-01-22 | XR_ITS ---
EXAMINATION: XR CHEST CLINICAL INFORMATION: Cirrhosis of the left COMPARISON: None available. TECHNIQUE: 2 views of the chest were obtained. FINDINGS: Lung volumes are low. There is no gross pneumothorax. Heart size is normal. No pleural effusion. Mild degenerative changes in the thoracic spine. Dextroscoliosis of the thoracic spine. Mild linear opacities at the left lung base may represent atelectasis or pneumonia. XR/XR chest 2V IMPRESSION: Mild linear opacities at the left lung base may represent atelectasis or pneumonia.
--- NOTE | 2023-01-22 11:03 | ECG_ITS ---
Test Reason : CIRRHOSIS OF LIVER Blood Pressure : / mmHG Vent. Rate : 052 BPM Atrial Rate : 052 BPM P-R Int : 150 ms QRS Dur : 088 ms QT Int : 446 ms P-R-T Axes : 004 022 040 degrees QTc Int : 414 ms Sinus bradycardia Otherwise normal ECG When compared with ECG of 03-SEP-2020 02:44, No significant change was found Heart rate has decreased Referred By: Satnam Vallecillo Electronically Signed By:PAPO REYES MD
[2023-01-22 11:17] LABS: MANUAL DIFF FLAG NO
[2023-01-22 11:27] LABS: Basophils Percent Auto 0.6 % (0-2); Eosinophils Absolute Auto 0.2 X10*3/uL (0.0-0.4); Eosinophils Percent Auto 3.1 % (0-4); Hematocrit 47.8 % (42.0-52.0); Imm Gran Abs Auto 0.01 X10*3/uL (0.00-0.03); Imm Gran Pct Auto 0.2 % (0.0-0.4); Lymphocytes Absolute Auto 1.1 X10*3/uL (1.2-4.9); Lymphocytes Percent Auto 22.5 % (20-40); Mean Corpuscular HGB Conc 35.6 g/dl (31.0-36.0); Mean Corpuscular Hemoglobin 32.1 pg (27.0-33.0); Mean Corpuscular Volume 90.2 fL (80.0-98.0); Mean Platelet Volume 11.5 fL (9.4-12.4); Monocytes Absolute Auto 0.5 X10*3/uL (0.1-1.2); Monocytes Percent Auto 9.7 % (2-11); Neutrophils Absolute Auto 3.1 x10*3/uL (2.0-8.3); Neutrophils Percent Auto 63.9 % (45-73); Platelet Count 89 X10*3/uL (160-400); Red Cell Distribution Width 13.3 % (11.0-16.0); White Blood Count 4.8 X10*3/uL (4.8-10.8)
[2023-01-22 12:01] LABS: Cholesterol 204 mg/dL (<200); HDL Cholesterol 30 mg/dL (>40); LDL Cholesterol Calculated 143 mg/dL (<100); Triglycerides 156 mg/dL (<150)
[2023-01-22 12:02] LABS: Alanine Aminotransferase 70 U/L (0-40); Albumin Level 4.4 g/dL (3.5-5.0); Alkaline Phosphatase 94 U/L (39-117); Anion Gap 15 (12-20); Aspartate Amino Transferase 41 U/L (5-37); Bilirubin Total 0.8 mg/dL (0.0-1.0); Blood Urea Nitrogen 8 mg/dL (9-16); Calcium 9.8 mg/dL (8.4-10.2); Carbon Dioxide 27 mmol/L (22-29); Chloride 103 mmol/L (96-108); Estimated Glomerular Filt Rate > 60; Glucose Random 112 mg/dL (60-115); Magnesium 2.3 mg/dL (1.6-2.6); Potassium 4.3 mmol/L (3.3-5.1); Sodium 141 mmol/L (135-145); Total Protein 7.8 g/dL (6.5-8.0)
[2023-01-22 14:57] LABS: Reflex LDLD? No
== END 2023-01-22 10:00 | disposition home or self-care (01) ==
LOC: HO.XRAY 09:59
PROVIDERS: PCP Nurse Practitioner Family; Visit Provider Internal Medicine Gastroenterology
DX: K75.81 Nonalcoholic steatohepatitis (NASH) (principal); K70.30 Alcoholic cirrhosis of liver without ascites; D17.9 Benign lipomatous neoplasm, unspecified; R07.81 Pleurodynia
CPT/HCPCS: 36415; 71046; 80053; 80061; 83735; 85025; 85610; 93005

== ENCOUNTER 2023-01-22 09:59 | Outpatient (AMB) | payer OTHER, SELFPAY ==
--- NOTE | 2023-01-22 10:00 | A.OFFVIS_ITS ---
Intake Vital Signs 01/22/23 10:01 Height 5 ft 7 in Weight 253 lb 8.505 oz BMI 39.7 BP 97/64 Blood Pressure Location Lt brachial Position Sitting Pulse 53 Intake Visit Reasons: Follow Up Intake Note: Kelvin presents in the office as a follow up. CC: He fell at work and hurt his ribs. He gets a tightness and some bumps on the LUQ. Business Intelligence Director Required: No Allergies amitriptyline [AMITRIPTYLINE] Allergy (Severe, Verified 01/22/23 10:03) SYNCOPE ondansetron [From ZOFRAN] Adverse Reaction (Intermediate, Verified 01/22/23 10:03) PROLONGED QT HPI Follow Up HPI Details 47 y/o m w/ hx of decompensated alcoholi c liver cirrhosis being seen for f/u ?MELD -Na-- --from labs 03/2022 ? RECAP: Alcoholic liver disease, been abstinent for few years now, had been seen for recalcitrant abdominal pain,. brought on by stress ? He had been having a lot of abdo pain during counseling sessions ? his and himself felt this was exacerbating his underlying pain but same time has helped him recover mentally, and in longer run helping him to recover. ? he had remained alcohol free ? 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 EGD 01/2019--small varices, gastric erosions, minor oozing from duodenum EGD 12/2019--small varices, possible GAVE, PHG US: 05/2021: reduced stiffness, cirrhosis, no masses ? INTERIM: appetite is good working hard, slipped at work and pain in left side of chest no melena no abdominal pain no constipation or diarrhea memory is good remains alcohol free for 8 yrs or so he is going to acupuncture and craniosacral clinic worried about a tender lump on the left scapula worried abt QT -told it was long in past EXAM: GENERAL: The patient is well developed and nontoxic. VITAL SIGNS:see workflow HEENT: Nonicteric sclerae, PERRLA, EOMI. Oropharynx clear. Moist mucous membranes. Conjunctivae appear well perfused. No thyroid mass. CHEST: Chest wall is nontender. HEART: Regular rate and rhythm without murmurs. LUNGS: Clear to auscultation bilaterally. ABDOMEN: Soft, positive bowel sounds, nontender, no organomegaly.no flank tenderness SKIN: No rash, no excessive bruising, petechiae, or purpura. NEUROLOGIC: Cranial nerves II-XII intact without motor/sensory deficit. lipoma tender, left scapula, tender left chest wall, no bruises seen Assessment & Plan ? 1. Alcoholic cirrhosis of liver, stable 2. fall and chest tenderness 3/ ? long QT PLAN: 1/ decompensated alcoholic liver cirrhos is--MELD-NA 8, 2/ varices- hx of banding, no evidence o f active bleeding, rept EGD now for surveillance, cont with nadolol 3/ HE- no evidence at this time 4/ HCC- repeat imaging, will get MRI now 5/ depression- stable 6/ ascites: no gross ascites on imaging 7/ transplant--MELD is below threshold f or the moment (if >14-15 refer) 8/ ECG 9/ CXR to check fro rib # 10/colonoscopy at later date 11/ refer surg for lipoma [facility] Medical History Testicular torsion Back pain Esophageal varices in cirrhosis GERD (gastroesophageal reflux disease) Cirrhosis Depression Arrhythmia Surgical History H/O wisdom tooth extraction History of esophagogastroduodenoscopy (EGD) Family History Father History of COPD Mother History of diabetes mellitus Social History Household Members: Significant Other, Family and Children Alcohol intake: current Alcohol intake frequency: does not drink Physical Exam Vital Signs: BMI result Body Mass Index 39.7 Assessment & Plan Assessment & Plan (1) Cirrhosis: Comment: alcoholic Code(s): K74.60 - Unspecified cirrhosis of liver Qualifiers: Hepatic cirrhosis type: alcoholic cirrhosis Ascites presence: without ascites Qualified Code(s): K70.30 - Alcoholic cirrhosis of liver without ascites (2) Rib fracture: Code(s): S22.39XA - Fracture of one rib, unspecified side, initial encounter for closed fracture (3) Lipoma: Code(s): D17.9 - Benign lipomatous neoplasm, unspecified Orders: Orders Complete Blood Count Auto Diff Today K74.60 - Unspecified cirrhosis of liver, S22.39XA - Fracture of one rib, unspecified side, initial encounter for closed fracture Prothrombin Time INR Today K74.60 - Unspecified cirrhosis of liver, S22.39XA - Fracture of one rib, unspecified side, initial encounter for closed fracture Lipid Panel with Reflex Today K74.60 - Unspecified cirrhosis of liver, S22.39XA - Fracture of one rib, unspecified side, initial encounter for closed fracture MR abdomen wo/w con Today K74.60 - Unspecified cirrhosis of liver Comprehensive Met. Panel Today K74.60 - Unspecified cirrhosis of liver, K75.81 - Nonalcoholic steatohepatitis (ROMERO), S22.39XA - Fracture of one rib, unspecified side, initial encounter for closed fracture XR chest 2V Today K74.60 - Unspecified cirrhosis of liver, S22.39XA - Fracture of one rib, unspecified side, initial encounter for closed fracture Magnesium Today K74.60 - Unspecified cirrhosis of liver ECG 12 lead EKG Today K74.60 - Unspecified cirrhosis of liver, S22.39XA - Fracture of one rib, unspecified side, initial encounter for closed fracture Referrals General Surgery Referral D17.9 - Benign lipomatous neoplasm, unspecified Coding Level of Care Code Est Pt Level 4 (98934) Diagnoses Alcoholic cirrhosis of liver without ascites K70.30 Hepatic cirrhosis type: alcoholic cirrhosis Ascites presence: without ascites Rib fracture S22.39XA Lipoma D17.9
[2023-01-22 10:01] VITALS: BP 97/64; PULSE 53; BMI 39.7
== END 2023-01-22 10:46 | disposition home or self-care (01) ==
PROVIDERS: PCP Nurse Practitioner Family; Visit Provider Internal Medicine Gastroenterology
DX: K70.30 Alcoholic cirrhosis of liver without ascites (principal); S22.39XA Fracture of one rib, unspecified side, initial encounter for closed fracture; D17.9 Benign lipomatous neoplasm, unspecified
CPT/HCPCS: 99214

== ENCOUNTER 2023-03-14 17:21 | Emergency (ER) | payer OTHER, SELFPAY ==
[2023-03-14 17:27] VITALS: BP 130/82; PULSE 80; O2SAT 100
--- NOTE | 2023-03-14 17:29 | ECG_ITS ---
Test Reason : UPPER GASTRIC PAIN Blood Pressure : / mmHG Vent. Rate : 070 BPM Atrial Rate : 070 BPM P-R Int : 124 ms QRS Dur : 084 ms QT Int : 438 ms P-R-T Axes : 032 026 041 degrees QTc Int : 473 ms Poor data quality Normal sinus rhythm with sinus arrhythmia Normal ECG When compared with ECG of 22-JAN-2023 11:01, QT has lengthened Referred By: Lakshmi Khan Electronically Signed By:LOURDES GRIFFITH MD
[2023-03-14 17:35] VITALS: BP 146/85; PULSE 65; RESP 20; TEMP 36.4; O2SAT 98; BMI 39.6
--- NOTE | 2023-03-14 18:18 | ED_ITS ---
HPI - Nausea/Vomiting/Diarrhea General Chief complaint: Nausea/Vomiting/Diarrhea Stated complaint: TRANSIENT EPISODE OF LOW O2 AND HR PER EMS Time Seen by Provider: 03/14/23 17:28 Source: patient and EMS Mode of arrival: EMS History of Present Illness HPI Narrative: 47-year-old male is brought in by EMS from home and patient states he drink coffee this morning but then developed multiple episodes of nausea, vomiting and states he did not take his gastritis medication. Patient is not complaining of subsequent development of mid epigastric discomfort, he does endorse use of cannabis but otherwise denies drinking alcohol for over 8 years. Related Data Home Medications Medication Instructions Recorded Confirmed folic acid 1 mg tablet 1 mg PO DAILY 12/26/19 12/26/19 lorazepam 1 mg tablet 1 mg PO DAILY PRN Anxiety 12/26/19 12/26/19 magnesium oxide 400 mg PO DAILY 12/26/19 12/26/19 multivitamin 1 tab PO DAILY 12/26/19 12/26/19 pregabalin 50 mg capsule (Lyrica) 50 mg PO BID 12/26/19 12/26/19 thiamine HCl (vitamin B1) 50 mg 50 mg PO DAILY 12/26/19 12/26/19 tablet buspirone 10 mg tablet 10 mg PO BID 12/16/21 cholecalciferol (vitamin D3) 10 25 mcg PO DAILY 12/16/21 mcg (400 unit) capsule fluoxetine 20 mg capsule 20 mg PO TID 12/16/21 hyoscyamine sulfate 0.125 mg tablet 0.125 mg PO ONCE 12/16/21 vitamin A acetate 3,000 mcg unit PO DAILY 12/16/21 (10,000 unit) sublingual tablet lorazepam 0.5 mg tablet 0.5 mg PO BID PRN 01/22/23 Previous Rx's Medication Instructions Recorded loratadine 10 mg disintegrating 10 mg PO DAILY #30 tabs 09/03/20 tablet (Claritin RediTabs) zinc gluconate 50 mg tablet 50 mg PO DAILY 90 days #90 tabs 11/01/20 sucralfate 100 mg/mL oral 10 ml PO QID 30 days #1,200 mL 11/17/21 suspension (Carafate) nadolol 20 mg tablet 20 mg PO DAILY #30 tabs 09/05/22 prochlorperazine maleate 5 mg 5 mg PO TID PRN for nausea #90 tabs 11/09/22 tablet sodium,potassium,mag sulfates 17.5 See Rx Instructions PO .COMPLEX 01/22/23 gram-3.13 gram-1.6 gram oral soln #354 mL (Suprep Bowel Prep Kit) furosemide 80 mg tablet 80 mg PO DAILY #30 tabs 02/01/23 lansoprazole 30 mg capsule,delayed 30 mg PO BID #180 caps 02/05/23 release famotidine 40 mg tablet 40 mg PO BEDTIME #30 tabs 03/05/23 spironolactone 50 mg tablet 100 mg (2 x 50 mg) PO DAILY #180 03/05/23 tabs Allergies Allergy/AdvReac Type Severity Reaction Status Date / Time amitriptyline [AMITRIPTYLINE] Allergy Severe SYNCOPE Verified 01/22/23 10:03 ondansetron [From ZOFRAN] AdvReac Intermediate PROLONGED Verified 01/22/23 10:03 QT Review of Systems 2 Review of Systems: Pertinent positives and negatives as stated in HPI PMFSH Past Medical History Source: nursing notes reviewed Medical History Testicular torsion Back pain Esophageal varices in cirrhosis GERD (gastroesophageal reflux disease) Cirrhosis Depression Arrhythmia Surgical History H/O wisdom tooth extraction History of esophagogastroduodenoscopy (EGD) Family History Family History Father History of COPD Mother History of diabetes mellitus Social History Social History Household Members: Significant Other, Family and Children Alcohol intake: current Alcohol intake frequency: does not drink Advance Directives: No Advance Directives Information Provided: No Physical Exam 2 Vital Signs: Vital Signs: Last Vital Signs Temp 97.8 F 03/14/23 22:20 Pulse 78 03/14/23 22:20 Resp 18 03/14/23 22:20 BP 131/78 03/14/23 22:20 Pulse Ox 97 03/14/23 22:20 O2 Del Method Room Air 03/14/23 22:20 BMI result Body Mass Index 39.6 VITAL SIGNS: Reviewed. GENERAL: Well developed, well nourished, in no acute distress. HEAD: Normocephalic/atraumatic EYES: PERRLA, EOMI EARS: Ext canals without abnormality NOSE: Nares patent bilateral OROPHARYNX: no oral lesions noted, posterior pharynx clear NECK: Supple, no adenopathy LUNGS: Normal breath sounds. No adventitious sounds or accessory muscle use. SpO2<98> CARDIOVASCULAR: Regular rate and rhythm without noted murmurs ABDOMEN: Soft, non-tender, non-distended with bowel sounds. MUSCULOSKELETAL: No tenderness, deformities, or effusions noted on gross inspection. EXTREMITIES: No cyanosis, clubbing or edema. SKIN: Inspection of the skin reveals no rashes NEUROLOGIC: Alert and oriented x 4. Strength and sensation to light touch were grossly intact x 4. Medications Administered Discontinued Medications Generic Name Dose Route Start Last Admin Trade Name Freq PRN Reason Stop Dose Admin Al Hydroxide/Mg Hydroxide 30 ml 03/14/23 21:37 03/14/23 21:49 Magnesium Hydrox/Alum Hydrox 30 Ml Oral.Susp PO 03/14/23 21:38 30 ml ONCE ONE Administration Diphenhydramine HCl 25 mg 03/14/23 18:44 03/14/23 18:57 Diphenhydramine Hcl 50 Mg/Ml Vial IVPUSH 03/14/23 18:45 25 mg ONCE ONE Administration Famotidine 20 mg 03/14/23 17:57 03/14/23 18:19 Famotidine/Pf 20 Mg/2 Ml Vial IVPUSH 03/14/23 17:58 20 mg ONCE ONE Administration Haloperidol Lactate 2.5 mg 03/14/23 20:41 03/14/23 21:10 Haloperidol Lactate 5 Mg/Ml Vial IM 03/14/23 20:42 2.5 mg ONCE ONE Administration Sodium Chloride 1,000 mls @ 999 mls/hr 03/14/23 18:00 03/14/23 19:20 Ns IV 03/14/23 19:00 Infused .Q1H1M AZAM Infusion Sodium Chloride 1,000 mls @ 999 mls/hr 03/14/23 19:00 03/14/23 20:24 Ns IV 03/14/23 20:00 Infused .Q1H1M AZAM Infusion Lidocaine HCl 10 ml 03/14/23 21:37 03/14/23 21:48 Lidocaine Hcl Viscous 2 % 15 Ml Solution MUCOUS MEM 03/14/23 21:38 10 ml ONCE ONE Administration Metoclopramide HCl 10 mg 03/14/23 18:44 03/14/23 18:58 Metoclopramide Hcl 10 Mg/2 Ml Vial IVPUSH 03/14/23 18:45 10 mg ONCE ONE Administration Ondansetron HCl 4 mg 03/14/23 17:57 03/14/23 18:19 Ondansetron Hcl 4 Mg/2 Ml Vial IVPUSH 03/14/23 17:58 4 mg ONCE ONE Administration Sucralfate 1 gm 03/14/23 21:37 03/14/23 21:49 Sucralfate Oral Suspension 1 Gm/10 Ml Oral.Susp PO 03/14/23 21:38 1 gm ONCE ONE Administration Medical Decision Making Medical Decision Making MDM Narrative: 47-year-old male with history and clinical presentation, DDX: Viral gastroenteritis, gastritis, pancreatitis, stomach ulcer INTERVENTION: IV fluids, Pepcid, Reglan/Benadryl, Zofran, Haldol I reviewed all investigations and hematologic indices demonstrate a non infectious stress leukocytosis, there is no anemia or thrombocytopenia. Coagulation studies are within normal limits. Chemistry indices are not demonstrating any LORELEI her electrolyte abnormalities, there is a mild bump in bilirubin likely secondary to patient's nausea and vomiting. Lipase is within normal limits. Urinalysis negative for UTI or hematuria. Viral testing negative for COVID/influenza. I have no clinical suspicion for cholecystitis/obstruction/appendicitis or any other intra-abdominal infection. When he was able to tolerate oral intake received a GI cocktail and Carafate. I did review all prior visits to include ER visit from 2020 as well as last Gastroenterology appointment on 01/22. Patient and are requesting morphine and Ativan, I reviewed the SCALE MANAGER which demonstrates that patient has recently filled a prescription for his Ativan. I did offer IV Ativan but patient felt that I was not giving him the treatment that he needed and patient eloped. Differential Diagnosis Differential Diagnoses: The differential diagnosis associated with the presentation includes Please see the discussion above Admission/Observation Consideration of admission/observation: Escalation of care including admission/observation considered Please see the discussion above Lab Data MDM Lab Attestation statement: I reviewed the patient's lab results. Please see the discussion above 03/14/23 20:18 03/14/23 18:16 Labs: Lab Results 03/14/23 03/14/23 Range/Units 18:16 20:18 WBC 11.0 H (4.8-10.8) X10*3/uL RBC 5.06 (4.60-5.80) X10*6/uL Hgb 16.1 (14.0-18.0) g/dl Hct 44.4 (42.0-52.0) % MCV 87.7 (80.0-98.0) fL MCH 31.8 (27.0-33.0) pg MCHC 36.3 H (31.0-36.0) g/dl RDW 12.9 (11.0-16.0) % Plt Count 84 L (160-400) X10*3/uL MPV 11.5 (9.4-12.4) fL Immature Gran % (Auto) 0.3 (0.0-0.4) % Neut % (Auto) 87.5 H (45-73) % Lymph % (Auto) 7.6 L (20-40) % [place] % (Auto) 4.4 (2-11) % Eos % (Auto) 0.0 (0-4) % Baso % (Auto) 0.2 (0-2) % Lymph # (Auto) 0.8 L (1.2-4.9) X10*3/uL [place] # (Auto) 0.5 (0.1-1.2) X10*3/uL Eos # (Auto) 0.0 (0.0-0.4) X10*3/uL Baso # (Auto) 0.0 (0.0-0.2) X10*3/uL Abs Immat Gran (auto) 0.03 (0.00-0.03) X10*3/uL Absolute Neuts (auto) 9.7 H (2.0-8.3) x10*3/uL Absolute Nucleated RBC 0.000 (0.0-0.012) X10*3/uL Nucleated RBC % (auto) 0.0 (0.0-0.2) /100WBC PT 11.8 (11.1-13.3) SEC INR 1.0 (0.9-1.1) Sodium 141 (135-145) mmol/L Potassium 3.7 (3.3-5.1) mmol/L Chloride 105 (96-108) mmol/L Carbon Dioxide 24 (22-29) mmol/L Anion Gap 16 (12-20) BUN 12 (9-16) mg/dL Creatinine 0.84 (0.5-1.4) mg/dL Estim Creat Clear Calc 134.4 Estimated GFR > 60 Random Glucose 180 H (60-115) mg/dL Calcium 10.2 (8.4-10.2) mg/dL Phosphorus Cancelled Magnesium Cancelled Total Bilirubin 1.2 H (0.0-1.0) mg/dL AST 33 (5-37) U/L ALT 23 (0-40) U/L Alkaline Phosphatase 104 (39-117) U/L Total Protein 8.5 H (6.5-8.0) g/dL Albumin 4.6 (3.5-5.0) g/dL Lipase 24 (8-78) U/L Urine Color Yellow Urine Appearance Clear Urine pH 8.5 (5.0-9.0) Ur Specific [place] 1.010 (1.005-1.025) Urine Protein Negative (Neg-Trace) mg/dL Urine Glucose (UA) Negative (Negative) mg/dL Urine Ketones Trace (Negative) mg/dL Urine Blood Negative (Negative) Urine Nitrite Negative (Negative) Ur Leukocyte Esterase Negative (Negative) Urine Opiates Screen Not Detected (Not Detect) Urine Fentanyl Screen Not Detected (Not Detect) Ur Barbiturates Screen Not Detected (Not Detect) Ur Phencyclidine Scrn Not Detected (Not Detect) Ur Amphetamines Screen Not Detected (Not Detect) U Benzodiazepines Scrn Not Detected (Not Detect) Urine Cocaine Screen Not Detected (Not Detect) U Marijuana (THC) Screen POSITIVE H (Not Detect) Ethyl Alcohol < 10 mg/dL COVID-19 (JOSE F) Negative (Negative) COVID-19 Clin Com See Note Influenza Type A (BARBARA) Negative (Negative) Influenza Type B (BARBARA) Negative (Negative) Influenza A & B Note See Note Independent Interpretation I performed an independent interpretation of an: EKG Interpretation: Normal sinus rhythm, HR-70, no STEMI, PA/QRS/QTC are within normal limits. External Record Review External record reviewed: Office record, Outpatient record, Prior outpatient labs and Prior outpatient radiology Critical Care Time Critical Care Time Critical Care Time: Yes Total Critical Care Time: 45 Attestation: I personally attest to this time spent taking care of the patient. Discharge Plan Discharge Clinical Impression: Cyclical vomiting Patient Disposition: Elopement Instructions: Acute Nausea and Vomiting (ED) Additional Instructions: 1. Resume all home medications as prescribed. 2. Follow-up with Dr. Vallecillo and your primary care doctor Return to the ER for any worsening symptoms. Prescriptions: No Action loratadine [Claritin RediTabs] 10 mg tablet,disintegrating 10 mg PO DAILY Qty: 30 2RF zinc gluconate 50 mg tablet 50 mg PO DAILY 90 Days Qty: 90 1RF sucralfate [Carafate] 100 mg/mL suspension 10 ml PO QID 30 Days Qty: 1200 3RF nadolol 20 mg tablet 20 mg PO DAILY Qty: 30 4RF prochlorperazine maleate 5 mg tablet 5 mg PO TID PRN (Reason: for nausea) Qty: 90 3RF sodium,potassium,mag sulfates [Suprep Bowel Prep Kit] 17.5-3.13-1.6 gram recon soln See Rx Instructions PO .COMPLEX Qty: 354 0RF Rx Instructions: DILUTE; drink 1/2 at 6-8 pm and half at 11 PM- 1AM furosemide 80 mg tablet 80 mg PO DAILY Qty: 30 1RF lansoprazole 30 mg capsule,delayed release(DR/EC) 30 mg PO BID Qty: 180 1RF spironolactone 50 mg tablet 100 mg PO DAILY Qty: 180 1RF famotidine 40 mg tablet 40 mg PO BEDTIME Qty: 30 4RF multivitamin Tablet 1 tab PO DAILY folic acid 1 mg Tablet 1 mg PO DAILY lorazepam 1 mg Tablet 1 mg PO DAILY PRN (Reason: Anxiety) thiamine HCl (vitamin B1) 50 mg Tablet 50 mg PO DAILY pregabalin [Lyrica] 50 mg Capsule 50 mg PO BID magnesium oxide 400 mg magnesium Tablet 400 mg PO DAILY fluoxetine 20 mg capsule 20 mg PO TID buspirone 10 mg tablet 10 mg PO BID hyoscyamine sulfate 0.125 mg tablet 0.125 mg PO ONCE vitamin A acetate 10,000 unit tablet, sublingual PO DAILY cholecalciferol (vitamin D3) 10 mcg (400 unit) capsule 25 mcg PO DAILY lorazepam 0.5 mg tablet 0.5 mg PO BID PRN Referrals: Dorys Carcamo, STEAM AND POWER SUPERVISOR [Primary Care Provider] - Satnam Vallecillo MD [Physician] -
[2023-03-14] MEDS: 0.9 % Sodium Chloride 1,000 ML 999 ML IV ×2 (18:19→19:23)
[2023-03-14] MEDS: ondansetron HCL 4 MG/2 ML VIAL IVPUSH (18:19)
[2023-03-14] MEDS: Famotidine/PF 20 MG/2 ML VIAL IVPUSH (18:19)
[2023-03-14 18:30] LABS: Prothrombin Time 11.8 SEC (11.1-13.3)
[2023-03-14 18:40] LABS: Lipase 24 U/L (8-78)
[2023-03-14 18:42] LABS: Ethanol < 10 mg/dL
[2023-03-14 18:43] LABS: Alanine Aminotransferase 23 U/L (0-40); Albumin Level 4.6 g/dL (3.5-5.0); Alkaline Phosphatase 104 U/L (39-117); Anion Gap 16 (12-20); Aspartate Amino Transferase 33 U/L (5-37); Bilirubin Total 1.2 mg/dL (0.0-1.0); Blood Urea Nitrogen 12 mg/dL (9-16); COVID-19 Test Negative (Negative); Calcium 10.2 mg/dL (8.4-10.2); Carbon Dioxide 24 mmol/L (22-29); Chloride 105 mmol/L (96-108); Creatinine Clr Calc Pharmacy 134.4; Estimated Glomerular Filt Rate > 60; Glucose Random 180 mg/dL (60-115); IDNOW Serial# 08D9AD1C; IDNOW Serial# BCCEAD1C; Potassium 3.7 mmol/L (3.3-5.1); Sodium 141 mmol/L (135-145); Total Protein 8.5 g/dL (6.5-8.0)
[2023-03-14 18:44] LABS: Influenza A Negative (Negative); Influenza B2 Negative (Negative)
[2023-03-14] MEDS: diphenhydrAMINE HCL 50 MG/ML VIAL 25 MG IVPUSH (18:57)
[2023-03-14] MEDS: Metoclopramide HCl 10 MG/2 ML VIAL IVPUSH (18:58)
--- NOTE | 2023-03-14 19:46 | PC.NURSE ---
care assumed of patient at this time; he is agitated in regards to being in pain. rpts 10 out of 10 epigastric pain. actively vomiting while RN at bedside. meds administered per MAR. IVF 2L NS now running. pt making comments such as I think you all hate me thats why youre leaving me like this. reassured patient that plan of care is being carried out.
[2023-03-14 19:56] VITALS: BP 130/62; PULSE 70; RESP 20; TEMP 36.4; O2SAT 99
--- NOTE | 2023-03-14 20:24 | MHC.EDTECH ---
This tech assumed care of patient at 1900, hourly rounds and vitals completed, patient is vomiting at this time and stated he is in alot of pain ,Marcus RN was made aware. Labs and a urine sample was obtained and sen to lab. at bedside and call govea within reach
[2023-03-14 20:30] LABS: Appearance Urine Clear; Basophils Percent Auto 0.2 % (0-2); Color Urine Yellow; Glucose Urine UA Negative (Negative); Hematocrit 44.4 % (42.0-52.0); Hemoglobin 16.1 g/dl (14.0-18.0); Imm Gran Abs Auto 0.03 X10*3/uL (0.00-0.03); Imm Gran Pct Auto 0.3 % (0.0-0.4); Leukocyte Esterase Urine Negative (Negative); Lymphocytes Absolute Auto 0.8 X10*3/uL (1.2-4.9); Lymphocytes Percent Auto 7.6 % (20-40); Mean Corpuscular HGB Conc 36.3 g/dl (31.0-36.0); Mean Corpuscular Hemoglobin 31.8 pg (27.0-33.0); Mean Corpuscular Volume 87.7 fL (80.0-98.0); Mean Platelet Volume 11.5 fL (9.4-12.4); Monocytes Absolute Auto 0.5 X10*3/uL (0.1-1.2); Monocytes Percent Auto 4.4 % (2-11); Neutrophils Absolute Auto 9.7 x10*3/uL (2.0-8.3); Neutrophils Percent Auto 87.5 % (45-73); Nitrite Urine Negative (Negative); PH 8.5 (5.0-9.0); Red Blood Count 5.06 X10*6/uL (4.60-5.80); Red Cell Distribution Width 12.9 % (11.0-16.0); Urine Blood Negative (Negative); Urine Ketones Trace mg/dL (Negative); Urine Protein Negative (Neg-Trace)
[2023-03-14 20:33] LABS: Amphetamine Screen Urine Not Detected (Not Detect); Barbiturates, Urine Not Detected (Not Detect); Benzodiazepines Screen Urine Not Detected (Not Detect); Cannabinoid Screen Urine POSITIVE (Not Detect); Cocaine Screen Urine Not Detected (Not Detect); Fentanyl, urine Not Detected (Not Detect); Opiate Screen Urine Not Detected (Not Detect); Phencyclidine Screen Urine Not Detected (Not Detect)
[2023-03-14 20:36] LABS: Platelet Count 84 X10*3/uL (160-400)
[2023-03-14 20:37] LABS: MANUAL DIFF FLAG NO
[2023-03-14] MEDS: Haloperidol Lactate 5 MG/ML VIAL 2.5 MG IM (21:10)
[2023-03-14] MEDS: Lidocaine HCl Viscous 2 % 15 ML SOLUTION 10 ML MUCOUS MEM (21:48)
[2023-03-14] MEDS: Sucralfate Oral Suspension 1 GM/10 ML ORAL.SUSP PO (21:49)
[2023-03-14] MEDS: Magnesium Hydrox/Alum Hydrox 30 ML ORAL.SUSP PO (21:49)
[2023-03-14 22:20] VITALS: BP 131/78; PULSE 78; RESP 18; TEMP 36.6; O2SAT 97
--- NOTE | 2023-03-14 22:21 | MHC.EDTECH ---
Hourly rounds and vitals completed,patient is restless stated he is in a lot of pain,Marcus RN was made aware
--- NOTE | 2023-03-14 22:32 | PC.NURSE ---
IM Haldol effective in stopping the vomiting, pt took GI cocktail w/o issue. pt was feeling better, but then notified this RN that pain was come back full throttle ; this RN did notify who ordered an additional GI cocktail. when I went back into patient room to update on plan of care pt states you have got to be fucking kidding me. I'm not taking another cocktail. I would rather go home and suffer then something bad will happen to me. spouse at bedside states you guys really do suck you know that? is there another doctor we can see? instructed pt and spouse that I would update MD and supervisor in charge. MD notified of the above. plumbing engineer also notified.
--- NOTE | 2023-03-14 22:38 | PC.NURSE ---
Addendum entered by Maria Fernanda Monsalve 03/14/23 22:51: late entry for 2148 Original Note: pt up to the bathroom multiple times, rpts that splashing cool water on his wrists helps to calm him down. explained GI cocktail was ordered. both pt and spouse explained that he uses PO Ativan at home when he gets abd pain like this to help calm down. however when he is already vomiting what he needs is IV ativan at the hospital. expressed to both pt and spouse that I would pass the info along but at this time ativan has not been ordered. notified.
--- NOTE | 2023-03-15 00:33 | PC.NURSE ---
This RN assumed care approximately 2300. Medications ordered for GI cocktail and po ativan. ThismRN bringing meds sara room when met in hallway by patient and souse reporting they were leaving. Pt upset d/t not getting IV pain medications. Did not want PO ativan or GI cocktail. Pt did take water and left without continuing treatment. Glenn aware.
== END 2023-03-14 23:15 | disposition left against medical advice (07) ==
PROVIDERS: Emergency Provider Student in an Organized Health Care Education/Training Program; PCP Nurse Practitioner Family
DX: R11.2 Nausea with vomiting, unspecified (principal); R10.13 Epigastric pain; I49.8 Other specified cardiac arrhythmias; Z20.822 Contact with and (suspected) exposure to COVID-19; Z11.52 Encounter for screening for COVID-19; Z79.899 Other long term (current) drug therapy
CPT/HCPCS: 36415; 80053; 80307; 81003; 83690; 85025; 85610; 87502; 87635; 93005; 96361; 96372; 96374; 96375; 99285; J1200; J1630; J2405; J2765

== ENCOUNTER → 2023-03-14 17:29 | Outpatient (BNV) | payer OTHER, SELFPAY | PROVIDERS: Emergency Provider Student in an Organized Health Care Education/Training Program; PCP Nurse Practitioner Family; Visit Provider Internal Medicine Cardiovascular Disease | DX: I49.8 Other specified cardiac arrhythmias (principal); R10.10 Upper abdominal pain, unspecified | CPT/HCPCS: 93010 ==

== ENCOUNTER 2023-03-16 14:59 | Emergency (ER) | payer OTHER, SELFPAY ==
--- NOTE | ~2023-03-16 | CT_ITS ---
EXAMINATION: CT ABDOMEN AND PELVIS WITH CONTRAST CLINICAL INFORMATION: Epigastric pain COMPARISON: 09/03/2020 TECHNIQUE: Multidetector volumetric images were obtained from the superior aspect of the liver through the pubic symphysis following administration 85 mL of Omnipaque 350 intravenous contrast. Sagittal and coronal reformatted images were obtained on the technologist's workstation. Oral contrast: No This CT examination was performed using dose optimization techniques as appropriate, variously including the following: *Automated exposure control *Adjustment of mA and/or kV according to patient size (this includes techniques or standardized protocols for targeted exams where dose is matched to indication/reason for exam; i.e. extremities or head) *Use of iterative reconstruction technique DLP: 1056 mGy-cm FINDINGS: LUNG BASES: The visualized lung bases are unremarkable. LIVER, GALLBLADDER, AND BILIARY TREE: Cirrhotic morphology no again noted. No hyperenhancing lesions. Hepatic and portal vessels are patent. No biliary ductal dilatation. The gallbladder is unremarkable with no evidence of radiopaque gallstones, gallbladder wall thickening, or obvious pericholecystic inflammatory changes. PANCREAS: Unremarkable. SPLEEN: Splenomegaly measuring up to 17.3 cm. ADRENAL GLANDS: Approximately 4 cm left adrenal fat-containing lesion most consistent with a myelolipoma. This is unchanged from baseline. KIDNEYS AND URETERS: The kidneys are normal in size, shape, and attenuation. No hydronephrosis, hydroureter, or calculi seen. No perinephric stranding. Tiny subcentimeter cyst left midpole cortex Bosniak 1. No follow-up indicated. BLADDER: Unremarkable. GASTROINTESTINAL TRACT: The small and large bowel are notable for decompressed appearance of the colon limiting assessment. Scattered diverticula. Element of mild portal colopathy can appear this way. No inflammatory changes cecal base.. ABDOMINAL WALL: Tiny fat-containing umbilical hernia. LYMPH NODES: Normal. VASCULAR: Unremarkable. PELVIC VISCERA: Unremarkable. OSSEOUS STRUCTURES: Incidental hemangiomata of lower dorsal vertebral bodies. CT/CT abdomen pelvis w IV con IMPRESSION: 1. Cirrhotic liver with changes of portal hypertension. No hyperenhancing lesions. 2. Stable left adrenal myelolipoma. 3. Decompressed colon limiting assessment. Mild colitis not excluded but portal colopathy can appear this way. Fleischner guidelines were followed.
--- NOTE | 2023-03-16 15:02 | ED_ITS ---
HPI - General Adult General Chief complaint: Abdominal Pain Stated complaint: GASTRITIS NAUSEA VOMITING Time Seen by Provider: 03/16/23 15:01 History of Present Illness HPI narrative: 47 y/o M patient; PMH marijuana use disorder, alcohol use disorder c/b cirrhosis and esophageal varies (past use); presents from home reporting nausea/vomiting/diarrhea. Patient was last seen in this ED on 03/14/2023 for nausea and vomiting. He was treated with IV fluids, pepcid, reglan/benadryl, zofran and haldol. He then eloped from the ED. He reports since being home he has been experiencing worsening epigastric abdominal discomfort. He has a GI physician who he last saw 2 weeks ago, he is scheduled for an endoscopy in the coming future. Last endoscopy he estimates was approx 5 years ago and unremarkable. Related Data Home Medications Medication Instructions Recorded Confirmed folic acid 1 mg tablet 1 mg PO DAILY 12/26/19 12/26/19 lorazepam 1 mg tablet 1 mg PO DAILY PRN Anxiety 12/26/19 12/26/19 magnesium oxide 400 mg PO DAILY 12/26/19 12/26/19 multivitamin 1 tab PO DAILY 12/26/19 12/26/19 pregabalin 50 mg capsule (Lyrica) 50 mg PO BID 12/26/19 12/26/19 thiamine HCl (vitamin B1) 50 mg 50 mg PO DAILY 12/26/19 12/26/19 tablet buspirone 10 mg tablet 10 mg PO BID 12/16/21 cholecalciferol (vitamin D3) 10 25 mcg PO DAILY 12/16/21 mcg (400 unit) capsule fluoxetine 20 mg capsule 20 mg PO TID 12/16/21 hyoscyamine sulfate 0.125 mg tablet 0.125 mg PO ONCE 12/16/21 vitamin A acetate 3,000 mcg unit PO DAILY 12/16/21 (10,000 unit) sublingual tablet lorazepam 0.5 mg tablet 0.5 mg PO BID PRN 01/22/23 Previous Rx's Medication Instructions Recorded loratadine 10 mg disintegrating 10 mg PO DAILY #30 tabs 09/03/20 tablet (Claritin RediTabs) zinc gluconate 50 mg tablet 50 mg PO DAILY 90 days #90 tabs 11/01/20 sucralfate 100 mg/mL oral 10 ml PO QID 30 days #1,200 mL 11/17/21 suspension (Carafate) nadolol 20 mg tablet 20 mg PO DAILY #30 tabs 09/05/22 prochlorperazine maleate 5 mg 5 mg PO TID PRN for nausea #90 tabs 11/09/22 tablet sodium,potassium,mag sulfates 17.5 See Rx Instructions PO .COMPLEX 01/22/23 gram-3.13 gram-1.6 gram oral soln #354 mL (Suprep Bowel Prep Kit) furosemide 80 mg tablet 80 mg PO DAILY #30 tabs 02/01/23 lansoprazole 30 mg capsule,delayed 30 mg PO BID #180 caps 02/05/23 release famotidine 40 mg tablet 40 mg PO BEDTIME #30 tabs 03/05/23 spironolactone 50 mg tablet 100 mg (2 x 50 mg) PO DAILY #180 03/05/23 tabs Allergies Allergy/AdvReac Type Severity Reaction Status Date / Time amitriptyline [AMITRIPTYLINE] Allergy Severe SYNCOPE Verified 01/22/23 10:03 ondansetron [From ZOFRAN] AdvReac Intermediate PROLONGED Verified 01/22/23 10:03 QT Review of Systems 2 Review of Systems: Yes all other systems are reviewed and are negative [facility] Past Medical History Attestation statement: The following information was validated with the patient. Source: old records reviewed Medical History Testicular torsion Back pain Esophageal varices in cirrhosis GERD (gastroesophageal reflux disease) Cirrhosis Depression Arrhythmia Surgical History H/O wisdom tooth extraction History of esophagogastroduodenoscopy (EGD) Family History Family History Father History of COPD Mother History of diabetes mellitus Social History Social History Household Members: Significant Other, Family and Children Alcohol intake: current Alcohol intake frequency: does not drink Smoked in Last 30 Days: No Use of substances other than those prescribed or required for medical reasons: Yes Substance Use Type: Marijuana Substance Use Frequency: Occasionally Advance Directives: No Advance Directives Information Provided: No Physical Exam ED Vital Signs: Vital Signs - 24 hr 03/16/23 16:00 03/16/23 18:28 Temperature 97.3 F Pulse Rate 74 67 Respiratory Rate 18 16 Blood Pressure 143/73 H 154/82 H Pulse Oximetry 98 96 Oxygen Delivery Method Room Air Room Air BMI result Body Mass Index 39.6 Patient is afebrile and hemodynamically stable. Const General: cooperative Nutritional Appearance: obese HENMT Head: Yes atraumatic Eyes General: appearance normal, both eyes and all related structures Pupils: Equal, round and reactive pupils present EOM: EOMs intact bilaterally Neck Neck: Yes full ROM, Yes supple and No tender Chest Chest palpation & inspection: normal inspection of the chest Resp Effort & Inspection: normal respiratory effort, able to speak in complete sentences and no respiratory distress Auscultation: clear to auscultation bilaterally Cardio Rate: regular rate Rhythm: regular rhythm Peripheral pulses: Peripheral pulses 2+ throughout GI Other: Mild epigastric abdominal discomfort Inspection: No distended Palpation (GI): Soft to palpation, not firm, no guarding and not rigid Auscultation: normal bowel sounds Neuro Cranial nerves: Yes Equal, round and reactive pupils present Course Course Course Narrative: Patient returns with similar symptoms after evaluation on 03/14/2023. Will obtain CT Abdomen/Pelvis, abdominal laboratory studies. Provided IVF, Haldol, Tylenol. Reevaluation(s) Reevaluation #1: Laboratory studies without leukocytosis. Thrombocytopenia. Mild hypokalemia 3.2. Repleted with PO. Remainder of labs unremarkable. CT Abdomen/Pelvis with cirrhotic liver and portal hypertension without other significant findings. Patient reported symptoms improvement from 01/02 to 8. Still reporting nausea. Will treat with Reglan and Benadryl, then PO trial. Reevaluation #2: Patient tolerating PO without difficulty. Plan: Discharge to home with PCP and GI follow up Return precautions given Patient is scheduled for out-patient colonoscopy within the next 1 month Medications Administered Discontinued Medications Generic Name Dose Route Start Last Admin Trade Name Venturaq PRN Reason Stop Dose Admin Acetaminophen 975 mg 03/16/23 16:11 03/16/23 16:29 Acetaminophen 325 Mg Tablet PO 03/16/23 16:12 975 mg ONCE ONE Administration Diphenhydramine HCl 25 mg 03/16/23 18:04 03/16/23 18:26 Diphenhydramine Hcl 50 Mg/Ml Vial IVPUSH 03/16/23 18:05 25 mg ONCE ONE Administration Haloperidol Lactate 5 mg 03/16/23 15:54 03/16/23 16:01 Haloperidol Lactate 5 Mg/Ml Vial IVPUSH 03/16/23 15:55 5 mg ONCE ONE Administration Sodium Chloride 1,000 mls @ 999 mls/hr 03/16/23 15:45 03/16/23 16:04 Ns IV 03/16/23 16:45 999 mls/hr .Q1H1M AZAM Administration Iohexol 85 ml 03/16/23 17:15 03/16/23 17:17 Iohexol 350 Mg/Ml 100 Ml Infus..Btl IV 03/16/23 17:16 85 ml ONCE ONE Administration Metoclopramide HCl 10 mg 03/16/23 18:04 03/16/23 18:24 Metoclopramide Hcl 10 Mg/2 Ml Vial IVPUSH 03/16/23 18:05 10 mg ONCE ONE Administration Medical Decision Making Lab Data 03/16/23 16:05 03/16/23 16:05 Labs: Lab Results 03/16/23 Range/Units 16:05 WBC 9.1 (4.8-10.8) X10*3/uL RBC 5.58 (4.60-5.80) X10*6/uL Hgb 17.7 (14.0-18.0) g/dl Hct 48.6 (42.0-52.0) % MCV 87.1 (80.0-98.0) fL MCH 31.7 (27.0-33.0) pg MCHC 36.4 H (31.0-36.0) g/dl RDW 12.7 (11.0-16.0) % Plt Count 86 L (160-400) X10*3/uL MPV 11.2 (9.4-12.4) fL Immature Gran % (Auto) 0.3 (0.0-0.4) % Neut % (Auto) 84.8 H (45-73) % Lymph % (Auto) 10.7 L (20-40) % Glascock % (Auto) 3.7 (2-11) % Eos % (Auto) 0.2 (0-4) % Baso % (Auto) 0.3 (0-2) % Lymph # (Auto) 1.0 L (1.2-4.9) X10*3/uL Glascock # (Auto) 0.3 (0.1-1.2) X10*3/uL Eos # (Auto) 0.0 (0.0-0.4) X10*3/uL Baso # (Auto) 0.0 (0.0-0.2) X10*3/uL Abs Immat Gran (auto) 0.03 (0.00-0.03) X10*3/uL Absolute Neuts (auto) 7.7 (2.0-8.3) x10*3/uL Absolute Nucleated RBC 0.000 (0.0-0.012) X10*3/uL Nucleated RBC % (auto) 0.0 (0.0-0.2) /100WBC Sodium 139 (135-145) mmol/L Potassium 3.2 L (3.3-5.1) mmol/L Chloride 103 (96-108) mmol/L Carbon Dioxide 25 (22-29) mmol/L Anion Gap 14 (12-20) BUN 12 (9-16) mg/dL Creatinine 0.91 (0.5-1.4) mg/dL Estim Creat Clear Calc 124.0 Estimated GFR > 60 Random Glucose 151 H (60-115) mg/dL Calcium 9.5 D (8.4-10.2) mg/dL Total Bilirubin 1.4 H (0.0-1.0) mg/dL Direct Bilirubin 0.4 (0.0-0.5) mg/dL AST 42 H (5-37) U/L ALT 29 (0-40) U/L Alkaline Phosphatase 94 (39-117) U/L Total Protein 8.0 (6.5-8.0) g/dL Albumin 4.6 (3.5-5.0) g/dL Lipase 25 (8-78) U/L Discharge Plan Discharge Clinical Impression: Gastritis Patient Disposition: Home, Self-Care Instructions: Gastritis (DC) Additional Instructions: As we discussed, you were seen today for nausea/vomiting/abdominal pain. Your lab work and CT scan were consistent with cirrhosis of your liver but did not explain your symptoms. Please follow up with your PCP and GI doctors within the next 1 week for further evaluation. Return to the ED for fever, inability to drink water, or worsening abdominal pain. Prescriptions: No Action loratadine [Claritin RediTabs] 10 mg tablet,disintegrating 10 mg PO DAILY Qty: 30 2RF zinc gluconate 50 mg tablet 50 mg PO DAILY 90 Days Qty: 90 1RF sucralfate [Carafate] 100 mg/mL suspension 10 ml PO QID 30 Days Qty: 1200 3RF nadolol 20 mg tablet 20 mg PO DAILY Qty: 30 4RF prochlorperazine maleate 5 mg tablet 5 mg PO TID PRN (Reason: for nausea) Qty: 90 3RF sodium,potassium,mag sulfates [Suprep Bowel Prep Kit] 17.5-3.13-1.6 gram recon soln See Rx Instructions PO .COMPLEX Qty: 354 0RF Rx Instructions: DILUTE; drink 1/2 at 6-8 pm and half at 11 PM- 1AM furosemide 80 mg tablet 80 mg PO DAILY Qty: 30 1RF lansoprazole 30 mg capsule,delayed release(DR/EC) 30 mg PO BID Qty: 180 1RF spironolactone 50 mg tablet 100 mg PO DAILY Qty: 180 1RF famotidine 40 mg tablet 40 mg PO BEDTIME Qty: 30 4RF multivitamin Tablet 1 tab PO DAILY folic acid 1 mg Tablet 1 mg PO DAILY lorazepam 1 mg Tablet 1 mg PO DAILY PRN (Reason: Anxiety) thiamine HCl (vitamin B1) 50 mg Tablet 50 mg PO DAILY pregabalin [Lyrica] 50 mg Capsule 50 mg PO BID magnesium oxide 400 mg magnesium Tablet 400 mg PO DAILY fluoxetine 20 mg capsule 20 mg PO TID buspirone 10 mg tablet 10 mg PO BID hyoscyamine sulfate 0.125 mg tablet 0.125 mg PO ONCE vitamin A acetate 10,000 unit tablet, sublingual PO DAILY cholecalciferol (vitamin D3) 10 mcg (400 unit) capsule 25 mcg PO DAILY lorazepam 0.5 mg tablet 0.5 mg PO BID PRN
[2023-03-16 15:05] VITALS: BP 146/72; PULSE 86; O2SAT 96
--- NOTE | 2023-03-16 15:32 | ECG_ITS ---
Test Reason : ABD PAIN Blood Pressure : / mmHG Vent. Rate : 070 BPM Atrial Rate : 070 BPM P-R Int : 126 ms QRS Dur : 082 ms QT Int : 430 ms P-R-T Axes : 028 016 036 degrees QTc Int : 464 ms Normal sinus rhythm with sinus arrhythmia Normal ECG When compared with ECG of 14-MAR-2023 18:33, No significant change was found Referred By: Sherrie Grossman Electronically Signed By:LOURDES GRIFFITH MD
[2023-03-16 15:52] VITALS: BMI 39.6
[2023-03-16 16:00] VITALS: BP 143/73; PULSE 74; RESP 18; TEMP 36.3; O2SAT 98
[2023-03-16] MEDS: Haloperidol Lactate 5 MG/ML VIAL IVPUSH (16:01)
[2023-03-16] MEDS: 0.9 % Sodium Chloride 1,000 ML 999 ML IV (16:04)
[2023-03-16 16:29] LABS: MANUAL DIFF FLAG NO
[2023-03-16] MEDS: Acetaminophen 325 MG TABLET 975 MG PO (16:29)
[2023-03-16 16:37] LABS: Basophils Percent Auto 0.3 % (0-2); Eosinophils Percent Auto 0.2 % (0-4); Hematocrit 48.6 % (42.0-52.0); Hemoglobin 17.7 g/dl (14.0-18.0); Imm Gran Abs Auto 0.03 X10*3/uL (0.00-0.03); Imm Gran Pct Auto 0.3 % (0.0-0.4); Lymphocytes Percent Auto 10.7 % (20-40); Mean Corpuscular HGB Conc 36.4 g/dl (31.0-36.0); Mean Corpuscular Hemoglobin 31.7 pg (27.0-33.0); Mean Corpuscular Volume 87.1 fL (80.0-98.0); Mean Platelet Volume 11.2 fL (9.4-12.4); Monocytes Absolute Auto 0.3 X10*3/uL (0.1-1.2); Monocytes Percent Auto 3.7 % (2-11); Neutrophils Absolute Auto 7.7 x10*3/uL (2.0-8.3); Neutrophils Percent Auto 84.8 % (45-73); Platelet Count 86 X10*3/uL (160-400); Red Blood Count 5.58 X10*6/uL (4.60-5.80); Red Cell Distribution Width 12.7 % (11.0-16.0); White Blood Count 9.1 X10*3/uL (4.8-10.8)
[2023-03-16 16:48] LABS: Alanine Aminotransferase 29 U/L (0-40); Albumin Level 4.6 g/dL (3.5-5.0); Alkaline Phosphatase 94 U/L (39-117); Anion Gap 14 (12-20); Aspartate Amino Transferase 42 U/L (5-37); Bilirubin Direct 0.4 mg/dL (0.0-0.5); Bilirubin Total 1.4 mg/dL (0.0-1.0); Blood Urea Nitrogen 12 mg/dL (9-16); Calcium 9.5 mg/dL (8.4-10.2); Carbon Dioxide 25 mmol/L (22-29); Chloride 103 mmol/L (96-108); Estimated Glomerular Filt Rate > 60; Glucose Random 151 mg/dL (60-115); Lipase 25 U/L (8-78); Potassium 3.2 mmol/L (3.3-5.1); Sodium 139 mmol/L (135-145)
[2023-03-16] MEDS: iohexoL 350 MG/ML 100 ML INFUS..BTL 85 ML IV (17:17)
[2023-03-16] MEDS: Metoclopramide HCl 10 MG/2 ML VIAL IVPUSH (18:24)
[2023-03-16] MEDS: diphenhydrAMINE HCL 50 MG/ML VIAL 25 MG IVPUSH (18:26)
[2023-03-16 18:28] VITALS: BP 154/82; PULSE 67; RESP 16; O2SAT 96
== END 2023-03-16 19:27 | disposition home or self-care (01) ==
PROVIDERS: Emergency Provider Emergency Medicine; PCP Nurse Practitioner Family
DX: K29.70 Gastritis, unspecified, without bleeding (principal); R11.2 Nausea with vomiting, unspecified; R10.13 Epigastric pain; F12.90 Cannabis use, unspecified, uncomplicated; K74.60 Unspecified cirrhosis of liver; K76.6 Portal hypertension; E66.9 Obesity, unspecified; Z68.39 Body mass index [BMI] 39.0-39.9, adult; Z79.899 Other long term (current) drug therapy
CPT/HCPCS: 36415; 74177; 80048; 80076; 83690; 85025; 93005; 96361; 96374; 96375; 99284; 99285; J1200; J1630; J2765; Q9967

== ENCOUNTER → 2023-03-16 15:32 | Outpatient (BNV) | payer OTHER, SELFPAY | PROVIDERS: Emergency Provider Emergency Medicine; PCP Nurse Practitioner Family; Visit Provider Internal Medicine Cardiovascular Disease | DX: R10.9 Unspecified abdominal pain (principal) | CPT/HCPCS: 93010 ==

== ENCOUNTER 2024-08-14 08:54 | Day surgery (SDC) | payer OTHER, SELFPAY ==
[2024-08-12 12:15] VITALS: BMI 39.6
--- NOTE | 2024-08-13 09:13 | HO.ANESPROP2 ---
Documented by User: Priyanka Oleary NP 08/13/24 09:15 HPI - Anesthesia Eval Consult details Narrative: 48yo M for Upper Endoscopy and Colonoscopy ETOH cirrhosis - has not been eval'd by GI since 12/2022 PENDING SALE TO [facility] Active Problems Active Problems: All Active Problems Lipoma (Acute) Rib fracture (Acute) Shoulder pain (Acute) Cirrhosis (Acute) Past Medical History Medical History (Updated 04/17/23 @ 13:28 by Kathryn Rueda RN) Alcoholic cirrhosis of liver Testicular torsion Back pain Esophageal varices in cirrhosis GERD (gastroesophageal reflux disease) Cirrhosis Depression Arrhythmia Family History Family History Father History of COPD Mother History of diabetes mellitus Surgical History Surgical History H/O wisdom tooth extraction History of esophagogastroduodenoscopy (EGD) Social History Social History Household Members: Significant Other, Family and Children Alcohol intake: current Alcohol intake frequency: former alcohol drinker Patient Tobacco Use Status: Never used Tobacco Second Hand Smoke Exposure: No Use of substances other than those prescribed or required for medical reasons: Yes Substance Use Type: Marijuana Substance Use Frequency: Occasionally Have you been hit, kicked, punched, or otherwise hurt by someone within the past year? If so, by whom?: No Are you DNR?: No Advance Directives: No Advance Directives Information Provided: Yes Advance Directives on File: No Poor oral hygiene: No Meds Allergies Allergy/AdvReac Type Severity Reaction Status Date / Time amitriptyline [AMITRIPTYLINE] Allergy Severe SYNCOPE Verified 01/22/23 10:03 ondansetron [From ZOFRAN] AdvReac Intermediate PROLONGED Verified 01/22/23 10:03 QT Home Medications ?Medication ?Instructions ?Recorded ?Confirmed ?Last Taken ?Type folic acid 1 mg tablet 1 mg PO DAILY 12/26/19 04/17/23 01/01/20 06:00 History lorazepam 1 mg tablet 1 mg PO DAILY PRN Anxiety 12/26/19 04/17/23 01/01/20 06:00 History magnesium oxide 400 mg PO DAILY 12/26/19 04/17/23 01/01/20 06:00 History multivitamin 1 tab PO DAILY 12/26/19 04/17/23 01/01/20 06:00 History pregabalin 50 mg capsule (Lyrica) 50 mg PO BID 12/26/19 04/17/23 01/01/20 06:00 History thiamine HCl (vitamin B1) 50 mg 50 mg PO DAILY 12/26/19 04/17/23 01/01/20 06:00 History tablet buspirone 10 mg tablet 10 mg PO BID 12/16/21 04/17/23 Unknown History cholecalciferol (vitamin D3) 10 25 mcg PO DAILY 12/16/21 04/17/23 Unknown History mcg (400 unit) capsule fluoxetine 20 mg capsule 20 mg PO TID 12/16/21 04/17/23 Unknown History hyoscyamine sulfate 0.125 mg tablet 0.125 mg PO ONCE 12/16/21 04/17/23 Unknown History vitamin A acetate 3,000 mcg 10,000 unit PO DAILY 12/16/21 04/17/23 Unknown History (10,000 unit) sublingual tablet lorazepam 0.5 mg tablet 0.5 mg PO BID PRN Anxiety 01/22/23 04/17/23 Unknown History Exam Height,Weight and Vital Signs: Height 5 ft 7 in Weight 114.759 kg Assessment and Plan Assessment Anesthesia Assessment: Chart Reviewed Documented by User: Emir Yancey MD 08/14/24 10:32 PENDING SALE TO [facility] Past Medical History Medical History (Updated 04/17/23 @ 13:28 by Kathryn Rueda RN) Alcoholic cirrhosis of liver Testicular torsion Back pain Esophageal varices in cirrhosis GERD (gastroesophageal reflux disease) Cirrhosis Depression Arrhythmia Family History Family History Father History of COPD Mother History of diabetes mellitus Family history of problems with anesthesia: No Surgical History Surgical History H/O wisdom tooth extraction History of esophagogastroduodenoscopy (EGD) History of Problems with Anesthesia: Yes (headaches) Social History Social History Household Members: Significant Other, Family and Children Alcohol intake: current Alcohol intake frequency: former alcohol drinker Patient Tobacco Use Status: Never used Tobacco Second Hand Smoke Exposure: No Use of substances other than those prescribed or required for medical reasons: Yes Substance Use Type: Marijuana Substance Use Frequency: Occasionally Have you been hit, kicked, punched, or otherwise hurt by someone within the past year? If so, by whom?: No Are you DNR?: No Advance Directives: No Advance Directives Information Provided: Yes Advance Directives on File: No Poor oral hygiene: No Meds Allergies Allergy/AdvReac Type Severity Reaction Status Date / Time amitriptyline [AMITRIPTYLINE] Allergy Severe SYNCOPE Verified 01/22/23 10:03 ondansetron [From ZOFRAN] AdvReac Intermediate PROLONGED Verified 01/22/23 10:03 QT Home Medications ?Medication ?Instructions ?Recorded ?Confirmed ?Last Taken ?Type folic acid 1 mg tablet 1 mg PO DAILY 12/26/19 04/17/23 01/01/20 06:00 History lorazepam 1 mg tablet 1 mg PO DAILY PRN Anxiety 12/26/19 04/17/23 01/01/20 06:00 History magnesium oxide 400 mg PO DAILY 12/26/19 04/17/23 01/01/20 06:00 History multivitamin 1 tab PO DAILY 12/26/19 04/17/23 01/01/20 06:00 History pregabalin 50 mg capsule (Lyrica) 50 mg PO BID 12/26/19 04/17/23 01/01/20 06:00 History thiamine HCl (vitamin B1) 50 mg 50 mg PO DAILY 12/26/19 04/17/23 01/01/20 06:00 History tablet buspirone 10 mg tablet 10 mg PO BID 12/16/21 04/17/23 Unknown History cholecalciferol (vitamin D3) 10 25 mcg PO DAILY 12/16/21 04/17/23 Unknown History mcg (400 unit) capsule fluoxetine 20 mg capsule 20 mg PO TID 12/16/21 04/17/23 Unknown History hyoscyamine sulfate 0.125 mg tablet 0.125 mg PO ONCE 12/16/21 04/17/23 Unknown History vitamin A acetate 3,000 mcg 10,000 unit PO DAILY 12/16/21 04/17/23 Unknown History (10,000 unit) sublingual tablet lorazepam 0.5 mg tablet 0.5 mg PO BID PRN Anxiety 01/22/23 04/17/23 Unknown History Exam Airway Mallampati Class: II TM Dist: >3cm Neck ROM: Full Partial: Upper Heart: rrr Lungs: cta Assessment and Plan Assessment Anesthesia Assessment: Anesthesia Plan Discussed Final Anesthetic Review Family History of Problems with Anesthesia: No History of Problems with Anesthesia: Yes (headaches) NPO: Yes ASA Class: III Patient Risk: Intermediate Procedure Risk: Low Anesthetic Plan Anesthetic Plan: GA and TIVA Disposition: Standard PACU
[2024-08-14 09:06] VITALS: BMI 40.7
--- NOTE | 2024-08-14 09:07 | MHC.SHP ---
Pre-Procedural Eval Section A - 24 Hr Update-Section A only Date of Service: 08/14/24 Section B - Complete if H&P > 30 days Chief Complaint: Unspecified cirrhosis of liver Relevant Family History (Specify if Yes): No Relevant Social History: None Present Medications: see Short Stay Collaborative assessment Medical History: Significant History (Alcoholic cirrhosis of liver Testicular torsion Back pain Esophageal varices in cirrhosis GERD (gastroesophageal reflux disease) Cirrhosis Depression Arrhythmia) History of Previous Operations: Relevant previous surgery/procedure and date(s) ( H/O wisdom tooth extraction History of esophagogastroduodenoscopy (EGD)) Allergies: Allergies Allergy/AdvReac Type Severity Reaction Status Date / Time amitriptyline [AMITRIPTYLINE] Allergy Severe SYNCOPE Verified 01/22/23 10:03 ondansetron [From ZOFRAN] AdvReac Intermediate PROLONGED Verified 01/22/23 10:03 QT Review of Systems Sugical H&P ROS: Negative: Constitution, Cardiovascular, Respiratory, Neurological, Psychiatric, Hem-Onc, Allergic/Immunologic, Gastrointestinal, Genitourinary, Musculoskeletal, Integumentary, Endocrine and Eyes/Ears/Nose/Throat Exam Surgical H&P Exam: Normal: HEENT, Normal: Heart, Normal: Lungs, Normal: Extremities, Normal: Abdomen, Normal: Skin and Normal: Neurological Plan Diagnosis/Plan: Unchanged I have reviewed the history and physical and performed a pertinent physical examination on my patient. No changes have occurred unless specified. EGD for variceal screening, colon screening Time Spent With Patient Time: Total time managing care of this patient today ____ minutes.
[2024-08-14 09:15] VITALS: BP 102/71; PULSE 79; RESP 16; TEMP 36.7; O2SAT 97
[2024-08-14] MEDS: Lactated Ringers 1,000 ML 100 ML IVCONT (09:24)
[2024-08-14 09:39] LABS: Hematocrit 43.1 % (42.0-52.0); Hemoglobin 15.5 g/dl (14.0-18.0); Mean Corpuscular Volume 88.9 fL (80.0-98.0); Mean Platelet Volume 10.4 fL (9.4-12.4); Red Blood Count 4.85 X10*6/uL (4.60-5.80); Red Cell Distribution Width 13.2 % (11.0-16.0); White Blood Count 5.4 X10*3/uL (4.8-10.8)
[2024-08-14 09:40] LABS: Platelet Count 84 X10*3/uL (160-400)
[2024-08-14 09:45] LABS: INTERNATIONAL NORM RATIO 1.1 (0.9-1.1); Prothrombin Time 13.1 SEC (10.9-12.4)
[2024-08-14 09:47] LABS: Partial Thromboplastin Time 32.3 SEC (26.0-36.8)
[2024-08-14 09:55] LABS: Alanine Aminotransferase 17 U/L (0-40); Alkaline Phosphatase 77 U/L (39-117); Anion Gap 12 (12-20); Aspartate Amino Transferase 30 U/L (5-37); Bilirubin Total 0.9 mg/dL (0.0-1.0); Blood Urea Nitrogen 11 mg/dL (9-16); Calcium 8.8 mg/dL (8.4-10.2); Carbon Dioxide 26 mmol/L (22-29); Chloride 109 mmol/L (96-108); Creatinine Clr Calc Pharmacy 145.2; Estimated Glomerular Filt Rate > 60; Glucose Fasting 105 mg/dL (60-99); Potassium 3.8 mmol/L (3.3-5.1); Sodium 143 mmol/L (135-145); Total Protein 6.8 g/dL (6.5-8.0)
--- NOTE | 2024-08-14 10:42 | HO.OPN-COLON ---
Colonoscopy Operative Note Operative Note Date of Service: 08/14/24 Narrative: Operative Information Procedure Description: EGD, Colonoscopy Indication: variceal screening, colon screening Anesthesia: MAC FLEXIBLE TRANSORAL UPPER GASTROINTESTINAL ENDOSCOPY AND COLONOSCOPY PROCEDURE NOTE UPPER ENDOSCOPY Consent: Indications for the procedure and potential complications of bleeding, perforation, reaction to medications and missed diagnosis were discussed with the patient and informed consent was obtained. Instrument: Olympus GIF H 190 J mid size upper endoscope Monitoring: Vital signs and clinical assessment, continuous EKG monitoring, Pulse oximetry, Carbon Dioxide monitoring and blood pressure monitoring were done throughout the procedure. Procedure: The patient was placed in the left lateral decubitis position and pre-procedure medications were administered and a bite block was placed. The endoscope was inserted into the mouth and advanced under direct vision to the third part of duodenum. A careful inspection was made as the upper endoscope was withdrawn including a retroflexed examination of the proximal stomach; Findings and interventions are described below. Findings: Larynx:normal Esophagus: GE junction at 38 cm, diaphragm hiatus at 38 cm, small varices seen, grade I, no high risk stigmata Stomach: Streaky gastric atral erythema. anterior wall with some greyish discoloration , ?pill gastritis-bx taken. Mosaic pattern consistent with portal hypertensive gastropathy. Grade 2 flap valve on retroflexed examination of the cardia. No gastric varices. Duodenum: Normal bulb and descending duodenum, Intervention: biopsy forceps COLONOSCOPY Instrument: Olympus variable stiffness pediatric scope 190L Colonoscopy Monitoring: Vital signs and clinical assessment, continuous EKG monitoring, Pulse oximetry, Carbon Dioxide monitoring and blood pressure monitoring were done throughout the procedure. Colon withdrawal time was 13 minutes. Procedure: The patient was placed in the left lateral decubitis position and pre-procedure medications were administered. After a digital rectal examination of the ano-rectum, the video colonoscope was inserted into the rectum and advanced through the colon to the cecum/TI. The colonoscope was slowly withdrawn in a retrograde panoramic fashion and the colon mucosa was carefully examined including a retroflexed view of the rectum. Findings and interventions are described below. Procedure Difficulty:moderate Findings: Terminal Ileum-normal Cecum:normal Ascending Colon: 10 mm sessile polyp removed with cold snare Transverse Colon -normal Descending Colon:normal Sigmoid Colon: 10 mm sessile polyp removed with cold snare, 6-8 mm sessile polyp removed with biopsy forceps Rectum: Retroflexion with small internal hemorrhoids, grade I, 10-12 mm sessile polyp in proximal rectum, injected with eleview and removed with cold snare with one clip applied for hemostasis Anorectum - normal Colon preparation: [place] Bowel Preparation Scale Right colon; 1-2 Transverse colon: 2 Left colon; 2 (0 = Unprepared colon segment with mucosa not seen due to solid stool that cannot be cleared. 1 = Portion of mucosa of the colon segment seen, but other areas of the colon segment not well seen due to staining, residual stool and/or opaque liquid. 2 = Minor amount of residual staining, small fragments of stool and/or opaque liquid, but mucosa of colon segment seen well. 3 = Entire mucosa of colon segment seen well with no residual staining, small fragments of stool or opaque liquid) Impression and Post Procedure Diagnosis: Endoscopy Findings: esophageal varices gastritis portal hypertensive gastropathy Colonoscopy Findings: colon polyps x 4 internal hemorrhoids Plan: Await Pathology results Repeat Colonoscopy in 1 year deu to fair prep on right or earlier if clinically indicated--next time adult scope High fiber diet leaflet avoid straining at stool, epsom salts and sitz bath, anusol supps or cream repeat EGD in 1-2 yrs Above findings were reviewed with the patient and relevant handouts were provided if indicated.
[2024-08-14 11:16] VITALS: BP 102/73; PULSE 86; RESP 16; TEMP 36.6; O2SAT 94
[2024-08-14 11:31] VITALS: BP 110/74; PULSE 64; RESP 16; TEMP 36.6; O2SAT 97
== END 2024-08-14 12:07 | disposition home or self-care (01) ==
PROVIDERS: Nurse Practitioner; PCP Nurse Practitioner Family; Visit Provider Internal Medicine Gastroenterology
PROC: (CPT 45381; principal; 2024-08-14 10:10)
DX: Z12.11 Encounter for screening for malignant neoplasm of colon (principal); D12.2 Benign neoplasm of ascending colon; D12.5 Benign neoplasm of sigmoid colon; K62.1 Rectal polyp; K64.0 First degree hemorrhoids; K70.30 Alcoholic cirrhosis of liver without ascites; I85.10 Secondary esophageal varices without bleeding; K29.60 Other gastritis without bleeding; K76.6 Portal hypertension; K31.89 Other diseases of stomach and duodenum; K21.9 Gastro-esophageal reflux disease without esophagitis; I85.00 Esophageal varices without bleeding
CPT/HCPCS: 45381; 45385; 45380; 43239; 36415; 80053; 85027; 85610; 85730; 88305; 88313; 88342; J2003; J2704

== ENCOUNTER → 2024-08-14 08:54 | Outpatient (BNV) | payer OTHER, SELFPAY | PROVIDERS: PCP Nurse Practitioner Family; Visit Provider Internal Medicine Gastroenterology | DX: I85.00 Esophageal varices without bleeding (principal); K29.70 Gastritis, unspecified, without bleeding; K31.89 Other diseases of stomach and duodenum; Z12.11 Encounter for screening for malignant neoplasm of colon; K63.5 Polyp of colon; K64.8 Other hemorrhoids | CPT/HCPCS: 43239; 45380; 45381; 45385 ==

== ENCOUNTER 2024-10-23 11:01 | Outpatient (REF) | payer OTHER, SELFPAY ==
--- NOTE | ~2024-10-23 | US_ITS ---
EXAMINATION: US ABDOMEN LIMITED WITH LIVER ELASTOGRAPHY HISTORY: K75.81 - Nonalcoholic steatohepatitis (ROMERO) TECHNIQUE: Real-time grayscale ultrasound imaging of the right upper quadrant was performed and images were reviewed. COMPARISON: Comparison is made with the prior examination dated 06/15/2021. FINDINGS: Liver: The right lobe of the liver measures 13.5 cm in size. The left lobe of the liver measures 15.8 cm in size. The liver demonstrates coarsened echotexture and a lobulated contour, suggestive of cirrhosis. No focal mass or intrahepatic biliary ductal dilatation is identified. There is normal hepatopedal flow in the portal vein. Ultrasound elastography of the liver was performed with 10 separate measurements of the liver parenchyma with the patient in the supine position. Measurements were obtained approximately 2 cm below Tuan's capsule and perpendicular to the capsule. The median shear wave velocity is 1.47 m/s (previously 1.42 m/s). The interquartile range/median (IQR/median) is 0.14. Gallbladder and biliary tree: The gallbladder is unremarkable, without evidence of calculi, wall thickening, or pericholecystic fluid. There is no sonographic Myers sign. The common bile duct is normal in caliber measuring 3 mm. Right Kidney: The right kidney measures 12.8 cm in length. The right kidney is unremarkable, without evidence of masses, hydronephrosis, or calculi. Pancreas: There is limited visualization of the pancreas. Abdominal aorta and inferior vena cava: The visualized portions of the abdominal aorta and inferior vena cava are normal in caliber. There is no free fluid in the right upper quadrant. US/US abdomen cai w elastography IMPRESSION: Coarsened hepatic echotexture with a lobulated contour and enlargement of the left lobe, suspicious for cirrhosis. The median shear wave velocity in the liver is 1.47 m/s, corresponding to a median liver stiffness of 6.88 kPa. The IQR/median value is 0.14. This is indicative of a quality data set. Findings are indicative of a low elastography value which rules out advanced chronic liver disease in asymptomatic patients. REFERENCE: Society of Radiologists in Ultrasound Liver Stiffness Thresholds (2020): LIVER STIFFNESS THRESHOLDS: *Shear wave velocity less than 1.3 m/s (Liver Stiffness equal or less than 5 kPa): High probability of being normal. *Shear wave velocity less than 1.7 m/s (Liver Stiffness less than 9 kPa): In the absence of other known clinical signs, rules out compensated advanced chronic liver disease. *Shear wave velocity between 1.7-2.1 m/s (Liver Stiffness 9-13 kPa): Suggestive of compensated advanced chronic liver disease but need further test for confirmation. *Shear wave velocity between 2.1-2.4 m/s (Liver Stiffness 13-17 kPa): Rules in compensated advanced chronic liver disease. *Shear wave velocity greater than 2.4 m/s (Liver Stiffness over 17 kPa): Suggestive of clinically significant portal hypertension. QUALITY OF DATA SET: *IQR/Median value equal or less than 0.15 implies a quality data set. *IQR/Median value over 0.15 implies a poor quality data set. SIGNIFICANT CHANGE FROM PRIOR EXAM: Significant change if liver stiffness measurement is 10% or greater from prior exam. OTHER CONSIDERATIONS: The stage of liver fibrosis may be overestimated in the setting of acute hepatitis, liver inflammation, elevated liver function tests, hepatic vascular congestion, obstructive cholestasis, non-fasting state, and infiltrative diseases such as amyloidosis and lymphoma. In some patients with NAFLD, the liver stiffness thresholds for compensated advanced chronic liver disease may be lower. In causes other than viral hepatitis and NAFLD, liver stiffness thresholds are not well established. Electronically signed by: Tito Caldwell MD 10/23/2024 11:45 AM EDT
--- OUTSIDE RECORDS SUMMARY | 2024-10-23 11:52 | XMS_ITS | Clinical Summary ---
Author Organization [facility] Address [address] [place] [id number] Phone Care Team Providers Care Recovery Collector Name Role Phone Dorys Carcamo NP Primary Care Provider +1- [phone] Allergies Active Allergy Reactions Criticality Noted Date Comments Amitriptyline (Bulk) 07/03/2023 Ondansetron Hcl 07/03/2023 Hx prolonged QTc Medications ondansetron (ZOFRAN-ODT) 4 MG disintegrating tablet (To-Go) Take 1-2 tablet(s) by mouth every 8 hours as needed for nausea/vomit ing 6 tablet 4 Active lidocaine (LIDODERM) 5 % Place 1 patch onto the skin daily. Remove & Discard patch within 12 hours or as directed by MD 30 patch 4 Active ondansetron (ZOFRAN-ODT) 4 MG disintegrating tablet (To-Go) Take 1-2 tablet(s) by mouth every 8 hours as needed for nausea/vomit ing 6 tablet 5 Active Social History Tobacco Use Types Packs/Day Years Used Date Smoking Tobacco: Never Assessed Education Answer Date Recorded Are you interested in more education? Not on gage e 07/03/2023 Are you concerned about learning? Not on file 07/03/2023 No 07/03/2023 No 07/03/2023 Digital Access Answer Date Recorded No 07/03/2023 No 07/03/2023 Reliable internet access at home? Not on file 07/03/2023 Device with a working camera? Not on file Intimate Partner Violence Answer Date R ecorded Are you denied basic needs s uch as food, clothing, or medical care? No 03/28/2024 In the past 12 months have y ou been in a relationship with a person who hurts, threatens, or tries to control you? No 03/28/2024 Are you denied basic needs s uch as food, clothing, or medical care? No 03/28/2024 In the past 12 months have y ou been in a relationship with a person who hurts, threatens, or tries to control you? No 03/28/2024 Sex and Gender Information Value Date Recorded Sex Assigned at Male 02/22/2024 10:41 AM EST Legal Sex Male 4:19 PM EDT Gender Identity Male 02/22/2024 10:41 AM EST Sexual Orientation Don't know 02/22/2024 10 :41 AM EST Last Filed Vital Signs Vital Sign Reading Time Taken Comments Blood Pressure 135/82 03/28/2024 11:38 PM EST Pulse 89 03/28/2024 11:38 PM EST Temperature 37 C (98.6 F) 03/28/2024 11:38 PM EST Respiratory Rate 16 03/28/2024 11:38 PM EST Oxygen Saturation 95% 03/28/2024 11:38 PM EST Inhaled Oxygen Concentration - - Weight 108.9 kg (240 lb) 03/28/2024 5:26 PM EST Height 170.2 cm (5' 7 ) 03/28/2024 5:26 PM EST Body Mass Index 37.59 03/28/2024 5:26 PM EST Plan of Treatment Health Maintenance Due Date Last Done Comments Adult Td,Tdap Booster 1977 LIPID PANEL 1977 DEPRESSION SCREENING 1989 SMOKING Hx and SMOKELESS TOB ACCO SCREENING 1990 HEPATITIS C SCREENING 10/09/1995 HIV ONE-TIME SCREENING (18-6 5 YEARS) 10/09/1995 SCREENING FOR DIABETES 2012 COLOGUARD 2022 COLONOSCOPY 2022 COLORECTAL CANCER SCREENING 2022 FIT TEST 2022 FOBT 2022 SIGMOIDOSCOPY 2022 VIRTUAL COLONOSCOPY 2022 COVID-19 VACCINE (2023-2 5 season) 2023 HEPATITIS A VACCINES Aged Out No long er eligible based on patient's age to complete this topic HIB VACCINES Aged Out No longer eligi ble based on patient's age to complete this topic MENINGOCOCCAL VACCINES (ACWY) Aged Out No longer eligible based on patient's age to complete this topic MENINGOCOCCAL VACCINES (B) Aged Out N o longer eligible based on patient's age to complete this topic PNEUMOCOCCAL VACCINES (0-49 years) Aged Out No longer eligible based on patient's age to complete this topic Medical Devices Not on file Insurance [facility] [employer] Member Subscriber Plan / Payer (Ef fective 2024-Present) Name:Kelvin Olivera Member ID:-[id number] Relation to Subscriber:Self Name:Kelvin Olivera Subscriber ID:-[id number] Payer ID:Not on file Group ID:Not on file Type:Indemnity Address: [address] [place] [id number] [place] [address] CARE Care Teams Recovery Collector Relationship Specialty Start Date End Date Dorys Carcamo NP [address] [place] [address] PCP - General Nurse Practitioner 07/03/23 Additional Source Comments The information contained in this document represents components of the legal health record. It is not the complete legal health record.[facility]
== END 2024-10-23 11:02 | disposition home or self-care (01) ==
LOC: HO.US 11:01
PROVIDERS: PCP Nurse Practitioner Family; Visit Provider Internal Medicine Gastroenterology
DX: K75.81 Nonalcoholic steatohepatitis (NASH) (principal); K70.30 Alcoholic cirrhosis of liver without ascites
CPT/HCPCS: 76705; 76981

== ENCOUNTER → 2024-10-23 11:03 | Outpatient (BNV) | payer OTHER, SELFPAY | PROVIDERS: PCP Nurse Practitioner Family; Visit Provider Radiology Diagnostic Radiology | DX: K75.81 Nonalcoholic steatohepatitis (NASH) (principal) | CPT/HCPCS: 76705 ==

== ENCOUNTER 2025-01-26 11:09 | Outpatient (AMB) | payer OTHER, SELFPAY ==
--- NOTE | 2025-01-26 11:18 | A.OFFVIS_ITS ---
Intake Visit Reasons: f/u Alcoholic cirrhosis liver without ascites Allergies amitriptyline (AMITRIPTYLINE) Allergy (Severe, Verified 01/22/23 10:03) SYNCOPE ondansetron (From ZOFRAN) Adverse Reaction (Intermediate, Verified 01/22/23 10:03) PROLONGED QT HPI HPI f/u Alcoholic cirrhosis liver without ascites: Details: 49 y/o m w/ hx of decompensated alcoholic liver cirrhosis-now compensated (MELD 3.0--7) being seen for f/u ? RECAP: Alcoholic liver disease, been abstinent for few years now, had been seen for recalcitrant abdominal pain,. brought on by stress ? He had been having a lot of abdo pain during counseling sessions ? his and himself felt this was exacerbating his underlying pain but same time has helped him recover mentally, and in longer run helping him to recover. ? he had remained alcohol free ? 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 EGD 01/2019--small varices, gastric erosions, minor oozing from duodenum EGD 12/2019--small varices, possible GAVE, PHG US: 05/2021: reduced stiffness, cirrhosis, no masses US: 10/17 cirrhosis ? INTERIM: appetite is good weight is high he is in good spirits not getting ketamine now no melena no abdominal pain no constipation or diarrhea memory is good remains alcohol free he is going to acupuncture and craniosacral clinic EXAM: GENERAL: The patient is well developed and nontoxic. VITAL SIGNS:see workflow HEENT: Nonicteric sclerae, PERRLA, EOMI. Oropharynx clear. Moist mucous membranes. Conjunctivae appear well perfused. No thyroid mass. CHEST: Chest wall is nontender. HEART: Regular rate and rhythm without murmurs. LUNGS: Clear to auscultation bilaterally. ABDOMEN: Soft, positive bowel sounds, nontender, no organomegaly.no flank tenderness SKIN: No rash, no excessive bruising, petechiae, or purpura. NEUROLOGIC: Cranial nerves II-XII intact without motor/sensory deficit. Assessment & Plan ? 1. Alcoholic cirrhosis of liver, stable --compensated now PLAN: 1/ decompensated alcoholic liver cirrhosis--MELD-NA 7 2/ varices- hx of banding, no evidence of active bleeding, rept EGD 1-2 yr, cont with nadolol 3/ HE- no evidence at this time 4/ HCC- repeat imaging, will get MRI now 5/ depression- stable 6/ ascites: no gross ascites on imaging 7/ transplant--MELD is below threshold for the moment (if >14-15 refer) 8/colonoscopy in 1 yr or so [facility] Medical History (Updated 04/17/23 @ 13:28 by Kathryn Rueda RN) Alcoholic cirrhosis of liver Testicular torsion Back pain Esophageal varices in cirrhosis GERD (gastroesophageal reflux disease) Cirrhosis Depression Arrhythmia Surgical History H/O wisdom tooth extraction History of esophagogastroduodenoscopy (EGD) Family History Father History of COPD Mother History of diabetes mellitus Social History Household Members: Significant Other, Family and Children Alcohol intake: current Alcohol intake frequency: former alcohol drinker Patient Tobacco Use Status: Never used Tobacco Second Hand Smoke Exposure: No Substance Use Type: Marijuana Assessment & Plan Assessment & Plan (1) Cirrhosis: Comment: alcoholic Code(s): K74.60 - Unspecified cirrhosis of liver Category: Medical Qualifiers: Hepatic cirrhosis type: alcoholic cirrhosis Ascites presence: without ascites Qualified Code(s): K70.30 - Alcoholic cirrhosis of liver without ascites Plan: as above Orders: Orders Complete Blood Count Auto Diff Today K70.30 - Alcoholic cirrhosis of liver without ascites Comprehensive Met. Panel Today K70.30 - Alcoholic cirrhosis of liver without ascites, K75.81 - Nonalcoholic steatohepatitis (ROMERO) Vitamin A Today K70.30 - Alcoholic cirrhosis of liver without ascites Zinc Today K70.30 - Alcoholic cirrhosis of liver without ascites MR abdomen wo/w con Today K70.30 - Alcoholic cirrhosis of liver without ascites Prothrombin Time INR Today K70.30 - Alcoholic cirrhosis of liver without ascites Vitamin D 25-OH Total Today K70.30 - Alcoholic cirrhosis of liver without ascites Coding Level of Care Code Est Pt Level 4 (38501) Diagnoses Alcoholic cirrhosis of liver without ascites K70.30 Hepatic cirrhosis type: alcoholic cirrhosis Ascites presence: without ascites
--- OUTSIDE RECORDS SUMMARY | 2025-01-26 14:08 | XMS_ITS | Encounter Summary ---
Author Organization [facility] Address [address] [place] [address] Phone Care Team Providers Care Delivery Driver/Supervisor Name Role Phone Dorys Carcamo NP Primary Care Provider +1- [phone] Encounter Details Date Type Department Care Team (Late st Contact Info) Description 02/22/2024 Procedure Pass [facility], Ct Scan - [address] [address] Social History Tobacco Use Types Packs/Day Years [...] as food, clothing, or medical care? No 02/22/2024 In the past 12 months have y ou been in a relationship with a person who hurts, threatens, or tries to control you? No 02/22/2024 Are you denied basic needs s uch as food, clothing, or medical care? No 02/22/2024 In the past 12 months have y ou been in a relationship with a person who hurts, threatens, or tries to control you? No 02/22/2024 Sex and Gender Information Value Date Recorded Sex Assigned at Male 02/22/2024 10:41 AM EST Legal Sex Male 4:19 PM EDT Gender Identity Male 02/22/2024 10:41 AM EST Sexual Orientation Don't know 02/22/2024 10 :41 AM EST documented as of this encounter Functional Status * Calculated C-SSRS Risk Score (Lifetime/Recent) Answer Date of Assessment Author No Risk Indicated 02/22/2024 10:15 AM Hernán Quiroz RN * Parker Suicide Severity Rating Scale (Screener/Recent Self-Report) Question Answer Date of Assessment Author 1. Wish to be (Past 1 Month) No 024 10:15 AM Hernán Quiroz RN 2. Non-Specific Active Suici mi Thoughts (Past 1 Month) No 02/22/2024 10:15 AM Hernán Quiroz RN 6. Suicidal Behavior (Lifetime) No 10:15 AM Hernán Quiroz RN documented as of this encounter Plan of Treatment Not on file documented as of this encounter Visit Diagnoses Not on filedocumented in this encounter Care Teams Delivery Driver/Supervisor Relationship Specialty Start Date End Date Dorys Carcamo NP [address] [place] [address] PCP - General Nurse Practitioner 07/03/23 documented as of this encounter Additional Source Comments The information contained in this document represents components of the legal health record. It is not the complete legal health record.[facility]
--- OUTSIDE RECORDS SUMMARY | 2025-01-26 14:08 | XMS_ITS | Clinical Summary ---
Author Organization [facility] Address [address] [place] [address] Phone Care Team Providers Care Engineer And Geologist Name Role Phone Dorys aCrcamo NP Primary Care Provider +1- [phone] Allergies Active Allergy Reactions Criticality Noted Date [...] within 12 hours or as directed by 30 patch 4 Active ondansetron (ZOFRAN-ODT) 4 [...] FOBT 2022 SIGMOIDOSCOPY 2022 VIRTUAL COLONOSCOPY 2022 INFLUENZA VACCINE (#1) 2024 COVID-19 VACCINE (1 - 2024-2 6 season) 2024 HEPATITIS A VACCINES Aged Out No long [...] topic Medical Devices Not on file [place] [place] [address] [employer] [facility] Care Teams Engineer And Geologist Relationship Specialty Start Date End Date Dorys Carcamo NP [address] [place] [address] PCP - General Nurse Practitioner 07/03/23 Additional Source Comments The information contained in this document represents components of the legal health record. It is not the complete legal health record.[facility]
== END 2025-01-26 11:47 | disposition home or self-care (01) ==
LOC: HO.HGI 11:09
PROVIDERS: PCP Nurse Practitioner Family; Visit Provider Internal Medicine Gastroenterology
DX: K70.30 Alcoholic cirrhosis of liver without ascites (principal)
CPT/HCPCS: 99214

== ENCOUNTER → 2025-01-26 11:09 | Outpatient (BNVA) | payer OTHER, SELFPAY | PROVIDERS: PCP Nurse Practitioner Family; Visit Provider Internal Medicine Gastroenterology | DX: K70.30 Alcoholic cirrhosis of liver without ascites (principal) | CPT/HCPCS: 99212 ==